=== PATIENT | male | born 1950 | race Caucasian/White ===

== ENCOUNTER 2019-08-01 05:32 | Inpatient (IN) ==
--- NOTE | 2019-07-14 08:28 | Anesthesiology Consultation ---
Date of Service July 14, 2019 Assessment & Plan (1) Encounter for pre-operative examination: Cardiology clearance 07/08/2019: "Patient has multiple risk factors however no history of CAD. He has mild aortic stenosis which would not affect perioperative course. Waiting for nuclear stress test before clearance made. Testing Thursday. He is on diltiazem and digoxin for previous atrial flutter/aberrancy. He has been stable without recurrence. EKG showing left bundle branch block, and previous EKG from 2009 does not. I feel as long as his nuclear stress test is okay, he can be cleared for surgery." Stress test showed EF 28%, was 50 to 55% on echocardiogram. Cardio repeated echo on 07/20/2019 which showed EF 45 to 50% EF. Cardiology 07/22 = "Patient is cleared for upcoming surgery from a cardiac standpoint." Chart Review Chart Review: Acceptable Risk for Surgery and Patient seen in Pre Admission Testing Teaching & Discussion Instructed NPO after midnight before surgery, except medications with 15 cc of water. Medication instructions provided according to the PAT guidelines. History Surgery Operation Date: 08/01/19 07:45 Proposed Procedures p L3-L5 Decompression and Fusion with Spinal Cord Monitoring - Richie Ralph, Height/Weight Height: 6 ft 2 in Weight: 108 kg Allergies Allergy/AdvReac Type Severity Reaction Status Date / Time CHOLESTEROL MEDICINE Allergy Unknown "CHOLESTEROL Uncoded 07/07/19 08:24 MEDICINE" - "CAN'T WALK" Medications Home Medications Medication Instructions Recorded Confirmed Last Taken aspirin [Aspir-81] 81 mg PO QAM 07/07/19 07/13/19 Unknown ascorbic acid (vitamin C) [Vitamin 500 mg PO DAILY 07/13/19 07/13/19 Unknown C] cholecalciferol (vitamin D3) 1,000 unit PO BID 07/13/19 07/13/19 Unknown [Vitamin D3] cinnamon bark [Cinnamon] 1,000 mg PO BID 07/13/19 07/13/19 Unknown cyanocobalamin (vitamin B-12) 500 mcg PO BID 07/13/19 07/13/19 Unknown [Vitamin B-12] digoxin 250 mcg PO QPM 07/13/19 07/13/19 Unknown diltiazem HCl 240 mg PO BID 07/13/19 07/13/19 Unknown duloxetine 30 mg PO HS 07/13/19 07/13/19 Unknown glipizide 2.5 mg PO QAM 07/13/19 07/13/19 Unknown losartan 100 mg PO QAM 07/13/19 07/13/19 Unknown metformin 1,000 mg PO BID 07/13/19 07/13/19 Unknown omega 6-oka-yek-fish oil [Fish Oil] 1 cap PO BID 07/13/19 07/13/19 Unknown vitamin E 400 unit PO QAM 07/13/19 07/13/19 Unknown Past Medical History Medical History (Updated 07/25/19 @ 09:29 by Mariusz Aquino) Back problem Diabetes History of colon polyps adenocarcinoma? Polyps cancerous per cardio office visit [facility] History of stroke TIA 2016. History of tachycardia Very rare episodes, has been over a decade since he had an episode Hypertension LBBB (left bundle branch block) Mild aortic stenosis by prior echocardiogram Echo 05/2019. Exercise / Class Metabolic Activity III < 4 Walking/Shop/Light housework (Difficult mobility 2/2 back pain/leg weakness, but denies SOB or CP with 1 FOS) Past Surgical History Surgical History (Updated 07/07/19 @ 08:33 by Willam Negrete RN) History of appendectomy WITH HERNIA REPAIR History of colonoscopy History of hand surgery R X2 History of knee surgery MULTIPLE R Past Anesthesia History No Hx of Anesthesia Complications and No Family Hx of Anesthesia Complications History of PONV No Hx of PONV and No Hx of Motion Sickness Social History Smoking Status: Former smoker tobacco type: cigarettes Do You Dip or Chew Tobacco: Yes (1 CAN PER DAY/ADVISED NPO) Smoking End Date: 20 YR AGO Hx Alcohol Use: Yes (seasonally--none in winter, several per day in summer) Hx Substance Use: No substance use type: does not use Review of Systems Pt denies any recent chest pain, shortness of breath, palpitations, cough, fever or URI. Physical Exam Vital Signs BP: 154/84 (pt is in significant pain) P: 67bpm SPO2: 95% RA T: 97.6 F R: 16 ENMT Mouth: + dentition abnormality (missing 1/3 of teeth); no dental restorations, no chipped teeth and no loose teeth Thyromental Distance: < 3.5 Finger Breadths (3) Mallampati Class: III Neck + facial hair (thick bushy mustache, pt advised to trim prior to surgery); neck extension not limited Respiratory normal respiratory effort Auscultation: lungs clear to auscultation bilaterally Cardiovascular Rate/Rhythm: regular rate and regular rhythm Heart Sounds: no murmur Extremities: no edema Testing Laboratory Results 07/14/19 08:40 07/14/19 08:40 PT 10.2 Seconds (9.0-12.0) 07/14/19 08:40 INR 1.0 (0.9-1.1) 07/14/19 08:40 APTT 27.1 Seconds (21.0-31.0) 07/14/19 08:40 Hemoglobin A1c 6.6 % (4.5-5.6) H 07/14/19 08:40 Urine Color Yellow 07/14/19 08:40 Urine Appearance Clear (Clear) 07/14/19 08:40 Urine pH 7.0 (4.5-7.5) 07/14/19 08:40 Ur Specific [place] 1.019 (1.000-1.030) 07/14/19 08:40 Urine Protein 2+ (Negative) H 07/14/19 08:40 Urine Glucose (UA) Negative (Negative) 07/14/19 08:40 Urine Ketones Negative (Negative) 07/14/19 08:40 Urine Nitrite Negative (Negative) 07/14/19 08:40 Ur Leukocyte Esterase Negative (Negative) 07/14/19 08:40 Urine WBC (Auto) 1-5 /hpf (0-5) 07/14/19 08:40 Urine RBC (Auto) 0-4 /hpf (0-4) 07/14/19 08:40 U Hyaline Cast (Auto) 0 /lpf (0-5) 07/14/19 08:40 U Epithel Cells (Auto) 5-10 /lpf (0-5) H 07/14/19 08:40 Urine Bacteria (Auto) Negative (Negative) 07/14/19 08:40 Blood Type O Positive 07/14/19 08:40 Antibody Screen NEGATIVE 07/14/19 08:40 Electrocardiogram Date: 06/23/19 Findings: + NSR @ (63bpm) LBBB. Chest X-Ray Date: 07/14/19 Findings: + NAD Echocardiogram Date: 06/23/19 EF: 50-55% Left ventricle cavity size is normal. Borderline concentric LVH. Global systolic function was normal. Left atrial size is normal. Trivial mitral regurgitation present. There is restricted aortic leaflet opening consistent with mild aortic stenosis. LINNEA 1.8/1.9cm2. Mean gradient 10.19. There is trivial tricuspid regurgitation present. Repeat TTE (done due to large discrepency in EF between echo and stress test) LV cavity size normal, wall thickness normal. OVerall LV systolic function is low-normal with an estimated EF of 45-50%. Stress Test Date: 07/11/19 Type: nuclear Resting EF: 28% This is an abnormal regadenason SPECT myocardial perfusion study due to the prescence of severe global HK. There is no significant ischemia or infarction, however. The LV is moderately dilated in size. The LV EF is 28%. Prognostically, this is a high risk study.
--- NOTE | 2019-07-14 08:32 | PAT Medication Instructions ---
Medication Instructions Date of Service July 14, 2019 Home Medications aspirin [Aspir-81] 81 mg PO QAM ascorbic acid (vitamin C) [Vitamin C] 500 mg PO DAILY cholecalciferol (vitamin D3) [Vitamin D3] 1,000 unit PO BID cinnamon bark [Cinnamon] 1,000 mg PO BID cyanocobalamin (vitamin B-12) [Vitamin B-12] 500 mcg PO BID digoxin 250 mcg PO QPM diltiazem HCl 240 mg PO BID duloxetine 30 mg PO HS glipizide 2.5 mg PO QAM losartan 100 mg PO QAM metformin 1,000 mg PO BID omega 2-tjk-fvz-fish oil [Fish Oil] 1 cap PO BID vitamin E 400 unit PO QAM STOP taking 2 weeks before surgery cinnamon bark [Cinnamon] 1,000 mg PO BID omega 4-igv-daw-fish oil [Fish Oil] 1 cap PO BID vitamin E 400 unit PO QAM DO NOT take the morning of surgery ascorbic acid (vitamin C) [Vitamin C] 500 mg PO DAILY cholecalciferol (vitamin D3) [Vitamin D3] 1,000 unit PO BID cyanocobalamin (vitamin B-12) [Vitamin B-12] 500 mcg PO BID glipizide 2.5 mg PO QAM losartan 100 mg PO QAM metformin 1,000 mg PO BID Take morning of surgery With a small sip of water, OTHERWISE NOTHING TO EAT OR DRINK AFTER MIDNIGHT: aspirin [Aspir-81] 81 mg PO QAM diltiazem HCl 240 mg PO BID Take evening before surgery cholecalciferol (vitamin D3) [Vitamin D3] 1,000 unit PO BID cinnamon bark [Cinnamon] 1,000 mg PO BID cyanocobalamin (vitamin B-12) [Vitamin B-12] 500 mcg PO BID digoxin 250 mcg PO QPM diltiazem HCl 240 mg PO BID duloxetine 30 mg PO HS metformin 1,000 mg PO BID Other Notes If you have any questions please call us at [phone] or [phone] or [phone] or [phone]
--- NOTE | 2019-07-14 09:15 | XRay Report ---
XR chest Pre-admission PA/Lat CLINICAL HISTORY: Preoperative chest COMPARISON STUDY: No previous studies for comparison. FINDINGS: The cardiac and mediastinal contours are normal. There is no evidence of focal pulmonary co nsolidation. There is no evidence of failure. No pleural effusions are visualized.[ IMPRESSION: No active disease in the chest. ACT 112: Negative or not required by law. Electronically signed by: Geo Birmingham M.D. 07/14/2019 9:14 AM
[2019-07-14 10:17] LABS: Basophils # (auto) 0.01 K/uL (0-0.2); Basophils % (auto) 0.2 %; Eosinophils # (auto) 0.17 K/uL (0-0.5); Eosinophils % (auto) 2.8 %; Hematocrit (blood only) 40.9 % (42-52); Hemoglobin 13.7 g/dL (14.0-18.0); Immature Granulocytes # (auto) 0.02 K/uL (0.00-0.02); Immature Granulocytes % (auto) 0.3 %; Lymphocytes # (auto) 1.34 K/uL (1.2-3.4); Lymphocytes % (auto) 21.9 %; Mean Corpuscular Hgb Conc 33.5 g/dL (32-36); Mean Corpuscular Volume 89.7 fL (80-100); Mean Platelet Volume 10.5 fL (7.4-10.4); Monocytes # (auto) 0.65 K/uL (0.11-0.59); Monocytes % (auto) 10.6 %; Neutrophils # (auto) 3.94 K/uL (1.4-6.5); Neutrophils % (auto) 64.2 %; Platelet Count 257 K/uL (130-400); RDW Coefficient of Variation 12.8 % (11.5-14.5); RDW Standard Deviation 41.4 fL (36.4-46.3); Red Blood Count 4.56 M/uL (4.7-6.1); White Blood Count 6.13 K/uL (4.8-10.8)
[2019-07-14 10:23] LABS: Appearance Urine Clear (Clear); Bacteria Urine Automated Negative (Negative); Bilirubin Urine Negative (Negative); Blood Urine Negative (Negative); Cast Urine Automated 0 /lpf (0-5); Color Urine Yellow; Glucose Urine UA Negative (Negative); Ketones Urine Negative (Negative); Leukocyte Esterase Urine Negative (Negative); Nitrite Urine Negative (Negative); Protein Urine 2+ (Negative); RBC Urine Automated 0-4 /hpf (0-4); Specific Gravity Urine 1.019 (1.000-1.030); Urobilinogen Urine Negative (Negative)
[2019-07-14 10:26] LABS: BUN Creatinine Ratio 14.8 (10-20); Calcium 9.1 mg/dl (8.5-10.1); Creatinine Clr Calc Pharmacy 101.1 ml/min; Est GFR (African American) 100.4; Est GFR (Non-African American) 86.6; Potassium 3.5 mmol/L (3.5-5.1)
[2019-07-14 10:36] LABS: Partial Thromboplastin Time 27.1 Seconds (21.0-31.0); Prothrombin Time 10.2 Seconds (9.0-12.0)
[2019-07-14 11:04] LABS: Estimated Average Glucose 143 mg/dl; Hemoglobin A1C 6.6 % (4.5-5.6)
[2019-08-01] MEDS ORDERED: CEFAZOLIN 2000MG 2,000 MG/15 ML SYR IV SCH ×2 (06:00→11:04)
[2019-08-01] MEDS ORDERED: GABAPENTIN 300 MG CAP PO SCH (06:00)
[2019-08-01] MEDS ORDERED: ACETAMINOPHEN 500 MG TAB PO SCH (06:00)
[2019-08-01] MEDS ORDERED: CeleBREX 200 MG CAP PO SCH (06:00)
[2019-08-01] MEDS ORDERED: LR 15ML/HR IV SCH (06:00)
[2019-08-01] MEDS ORDERED: fentaNYL citrate 100 MCG/2 ML VIAL ONE (06:29)
[2019-08-01] MEDS ORDERED: LIDOCAINE HCL 2% 2 ML VIAL/AMP(20MG/ML) INFIL ONE (06:29)
[2019-08-01] MEDS ORDERED: PROPOFOL IV EMULSION 10 MG/ML 20 ML VIAL IV ONE ×2 (06:29→08:12)
[2019-08-01] MEDS ORDERED: ROCURONIUM BROMIDE 10 MG/ML 5 ML VIAL ONE ×2 (06:29→08:17)
[2019-08-01] MEDS ORDERED: GLYCOPYRROLATE 0.2 MG/ML VIAL ONE (06:29)
[2019-08-01] MEDS ORDERED: DEXAMETHASONE SOD INJ 4 MG/ML VIAL ONE (06:29)
[2019-08-01] MEDS ORDERED: MIDAZOLAM HCL 1 MG/ML 2ML VIAL ONE (06:29)
[2019-08-01] MEDS ORDERED: NEOSTIGMINE METHYLSULFATE 1 MG/ML 10ML VIAL ONE (06:29)
[2019-08-01] MEDS ORDERED: ONDANSETRON INJ 2 MG/ML 2 ML VIAL ONE (06:29)
[2019-08-01] MEDS ORDERED: BUPIVACAINE/EPINEPHRINE 0.25% 1:200,000 30 ML VIAL ONE (07:08)
[2019-08-01] MEDS ORDERED: BACITRACIN INJ 50,000 UNIT VIAL ONE (07:08)
[2019-08-01] MEDS ORDERED: ATROPINE SULFATE 0.1 MG/ML 10ML SYR IV PRN (07:11)
[2019-08-01] MEDS ORDERED: HYDROmorphone INJ 2 MG/ML SYR/VIAL IV PRN (07:11)
[2019-08-01] MEDS ORDERED: METOCLOPRAMIDE HCL INJ 5 MG/ML 2 ML VIAL IV PRN ×2 (07:11→11:04)
[2019-08-01] MEDS ORDERED: PROMETHAZINE HCL 12.5 MG in SODIUM CHLORIDE 0.9% 50 ML IV PRN ×2 (07:11→11:04)
[2019-08-01] MEDS ORDERED: ONDANSETRON INJ 2 MG/ML 2 ML VIAL IV PRN ×2 (07:11→11:04)
[2019-08-01] MEDS ORDERED: fentaNYL citrate 100 MCG/2 ML VIAL IV PRN (07:11)
[2019-08-01] MEDS ORDERED: ePHEDrine sulfate 50 MG/ML AMP IV PRN (07:11)
--- NOTE | 2019-08-01 07:31 | History & Physical Bridge Note ---
Date of Service August 01, 2019 History & Physical Bridge Note I have examined the patient, reviewed the History & Physical and in the interval since the performance of the History & Physical I have noted the following changes of clinical significance: no changes noted
--- NOTE | 2019-08-01 07:32 | History & Physical Report ---
Date of Service August 01, 2019 Assessment & Plan (1) Neurogenic claudication due to lumbar spinal stenosis: L3-L5 decompression fusion Present on Admission?: Yes History of Present Illness Chief Complaint: Back and leg pain Primary Care Provider: Phoebe Mondragon This is a 68-year-old male who presents with chronic persistent back and leg pain. Failing a course of nonoperative care is here for surgical intervention. Allergies Allergy/AdvReac Type Severity Reaction Status Date / Time CHOLESTEROL MEDICINE Allergy Unknown "CHOLESTEROL Uncoded 08/01/19 06:08 MEDICINE" - "CAN'T WALK" Home Medications Home Medications Medication Instructions Recorded Confirmed Type aspirin [Aspir-81] 81 mg PO QAM 07/07/19 08/01/19 History ascorbic acid (vitamin C) [Vitamin 500 mg PO DAILY 07/13/19 08/01/19 History C] cholecalciferol (vitamin D3) 1,000 unit PO BID 07/13/19 08/01/19 History [Vitamin D3] cinnamon bark [Cinnamon] 1,000 mg PO BID 07/13/19 08/01/19 History cyanocobalamin (vitamin B-12) 500 mcg PO BID 07/13/19 08/01/19 History [Vitamin B-12] digoxin 250 mcg PO QPM 07/13/19 08/01/19 History diltiazem HCl [Cardizem CD] 240 mg PO BID 07/13/19 08/01/19 History glipizide 2.5 mg PO QAM 07/13/19 08/01/19 History losartan 100 mg PO QAM 07/13/19 08/01/19 History metformin 1,000 mg PO BID 07/13/19 08/01/19 History omega 4-pxg-mcy-fish oil [Fish Oil] 1 cap PO BID 07/13/19 08/01/19 History vitamin E 400 unit PO QAM 07/13/19 08/01/19 History baclofen 10 mg PO BID 07/28/19 08/01/19 History Past Med/Surg History Medical History (Updated 08/01/19 @ 07:32 by Richie Ralph DO) Back problem Diabetes History of colon polyps adenocarcinoma? Polyps cancerous per cardio office visit [facility] History of stroke TIA 2016. History of tachycardia Very rare episodes, has been over a decade since he had an episode Hypertension LBBB (left bundle branch block) Mild aortic stenosis by prior echocardiogram Echo 05/2019. Surgical History (Updated 07/07/19 @ 08:33 by Willam Negrete RN) History of appendectomy WITH HERNIA REPAIR History of colonoscopy History of hand surgery R X2 History of knee surgery MULTIPLE R Social History Preferred Language: Bulgarian Communication Ability: Effective Circular Shear Operator Required: No Beliefs That Will Affect Care: None Current Living Situation: Spouse Other Information That Helps Us Care for You: No Feels Safe at Home: Yes Smoking Status: Former smoker Tobacco Type: cigarettes ; Do You Dip or Chew Tobacco: Yes (1 CAN PER DAY/ADVISED NPO) ; Smoking End Date: 20 YR AGO ; Hx Alcohol Use: Yes (seasonally--none in winter, several per day in summer) Hx Substance Use: No Physical Exam Physical Exam: Patient is alert and oriented neurologically intact. Results & Data Vital Signs (Past 12 Hours) Vital Signs Temp Pulse Resp BP Pulse Ox 08/01/19 06:14 36.8 C 58 L 18 161/84 H 94
[2019-08-01] MEDS ORDERED: HYDROmorphone INJ 2 MG/ML SYR/VIAL ONE (08:11)
[2019-08-01] MEDS ORDERED: ePHEDrine sulfate 50 MG/ML AMP ONE (08:29)
[2019-08-01] MEDS ORDERED: FLOSEAL HEMOSTATIC MATRIX 10ML TOP ONE (09:36)
--- NOTE | 2019-08-01 09:36 | Operative Report ---
Post Operative Report Pre & Post Diagnosis Operation Date: 08/01/19 07:45 Pre-Op Diagnosis: Lumbar spinal stenosis with neurogenic claudication Post-Op Diagnosis: Same I identified the patient and participated in the time-out.: Yes Procedure Operation Date: 08/01/19 07:45 Actual Procedures #1 lumbar decompression with bilateral medial facetectomies and foraminotomies L3-4 L4-5. #2 posterior spinal fusion L4-5. #3 placement posterior instrumentation L4-5. #4 interbody fusion L4-5 per #5 placement of titanium 13 x 26 mm cage L4-5 per #6 placement locally harvested morselized autograft in the posterior lateral gutters. #7 placement infuse collagen sponge, master graft in the posterior gutters and ostial amp and interbody space. Surgeon Richie Ralph DO Linen Attendant Maria Alejandra Li Estimated Blood Loss 250 Findings Consistent with Post-Op Diagnosis Specimens None Indications This is a 68-year-old male who presents above-mentioned diagnosis after failing extensive course of nonoperative care is here for surgical intervention. Description of Procedure Patient was met with identified informed consent obtained. Patient was then taken to the operative suite underwent intubation placed in a prone position the Ortiz table on top of the Rohan frame. All bony prominences well-padded eyes inspected to ensure no external pressure placed upon them. This point the lumbar spine was prepped and draped in normal sterile fashion. Sharp dissection with the assistance of Bovie cautery was performed down to and exposing the lamina and transverse processes of L4 and L5 bilaterally. From a caudal cephalad fashion complete laminectomy of L4 partial laminectomy of L3 was performed including bilateral medial facetectomies and foraminotomies addressing all stenosis. Pedicle screws were then placed in L4 and L5 bilaterally with assistance of fluoroscopy the proper sized marlin placed. By way of a transforaminal approach on the left complete discectomy was performed endplates curetted to subcortical bleeding bone and a 13 x 26 mm titanium cage filled with osteo-bone graft tapped in position. The rods were then compressed locked into final position bilaterally. The transverse processes of L4 and L5 bur to subcortical bleeding bone. Infuse collagen sponge master graft local autograft placed in the posterior lateral gutters. 15 round MILTON drain inserted. The incision was then closed with 1 Vicryl in the fascia 2-0 Vicryl subcutaneously and 4 Monocryl for final skin closure. Steri-Strips dressings placed. Patient will continue to PACU stable condition. Please note spinal cord monitoring was utilized that the procedure no changes noted. Lastly Maria Alejandra Li was present at the entire procedure involved the patient positioning complex portions of the surgery and final skin closure. I attest to the content of the Intraoperative Record and any orders documented therein. Any exceptions are noted below.
--- NOTE | 2019-08-01 10:15 | Fluoroscopy Report ---
FL lumbar spine 2-3V CLINICAL HISTORY: DECOMPRESSION/FUSION COMPARISON STUDY: None. FLUOROSCOPY TIME: 14.7 seconds. FLUOROSCOPIC IMAGES: 2 FINDINGS: This images demonstrate an L4-L5 discectomy with interbody spacer placement. There is a pos terior decompression with bilateral pedicle screws at the L4 and L5 levels with interconnecting rods. Hardware is intact. IMPRESSION: Fluoroscopic images demonstrating an L4-L5 discectomy, posterior decompression bilateral pedicle screw fusion. ACT 112: Negative or not required by law. Electronically signed by: Senthil Wright M.D. 08/01/2019 10:14 AM
--- NOTE | 2019-08-01 10:39 | Anesthesiology Progress Note ---
Date of Service August 01, 2019 Anesthesia Post Procedure Vital Signs Vital Signs: Temp Pulse Pulse Resp BP Pulse Ox 08/01/19 10:25 58 L 16 121/64 97 08/01/19 10:15 62 16 117/89 96 08/01/19 10:05 69 16 132/59 L 99 08/01/19 09:59 36.3 C L 72 16 151/68 H 98 08/01/19 06:14 36.8 C 58 L 18 161/84 H 94 Transfer of Care Handoff Completed per policy Notes Mental Status: alert / awake / arousable and participated in evaluation Patient Amnestic to Procedure: Yes Nausea / Vomiting: adequately controlled Pain: adequately controlled Airway Patency, RR, SpO2: stable & adequate BP & HR: stable & adequate Hydration State: stable & adequate Anesthetic Complications: no major complications apparent
[2019-08-01] MEDS ORDERED: SOD PHOSPHATE/SOD BIPHOSPHATE ENEMA 132 ML BTL PR PRN (11:04)
[2019-08-01] MEDS ORDERED: ACETAMINOPHEN 500 MG TAB PO PRN (11:04)
[2019-08-01] MEDS ORDERED: MAGNESIUM HYDROXIDE SUSP 30 ML UDC PO PRN (11:04)
[2019-08-01] MEDS ORDERED: DO NOT ADMINISTER PNEUMOCOCCAL VACCINE PRN (11:04)
[2019-08-01] MEDS ORDERED: DO NOT ADMINISTER FLU VACCINE PRN (11:04)
[2019-08-01] MEDS ORDERED: NALOXONE HCL 0.4 MG/1 ML VIAL/CARP IV PRN (11:04)
[2019-08-01] MEDS ORDERED: LORazepam 0.5 MG/1 ML VIAL IV PRN (11:04)
[2019-08-01] MEDS ORDERED: bisacodyL 10 MG SUPP PR PRN (11:04)
[2019-08-01] MEDS ORDERED: ACETAMINOPHEN 1,000 MG/100 ML VIAL IV PRN (11:04)
[2019-08-01] MEDS ORDERED: FAMOTIDINE 20 MG TAB PO PRN (11:04)
[2019-08-01] MEDS ORDERED: ONDANSETRON 4 MG OD TAB PO PRN (11:04)
[2019-08-01] MEDS ORDERED: LORazepam 0.5 MG TAB PO PRN (11:04)
[2019-08-01] MEDS ORDERED: HYDROmorphone INJ 0.5 MG/0.5 ML SYR IV PRN (11:04)
[2019-08-01] MEDS ORDERED: ALUMINUM/MAGNESIUM SUSP 30 ML UDC PO PRN (11:04)
[2019-08-01] MEDS ORDERED: DEXTROSE 50% 50 ML SYRINGE IV PRN (11:28)
[2019-08-01] MEDS ORDERED: GLUCOSE 10 TABS/TUBE PO PRN (11:28)
[2019-08-01] MEDS ORDERED: GLUCOSE 40% GEL 15 GM TUBE PO PRN (11:28)
[2019-08-01] MEDS ORDERED: GLUCAGON FOR INJ 1 MG VIAL SQ PRN (11:28)
[2019-08-01] MEDS ORDERED: CARBOHYDRATES FOR HYPOGLYCEMIA PO PRN (11:28)
[2019-08-01] MEDS: KETOROLAC TROMETHAMINE 15 MG/ML VIAL IV SCH ×3 (11:48→23:43)
[2019-08-01] MEDS: SODIUM CHLORIDE 0.9% 1000ML 1,000 ML IV SCH ×2 (11:48→20:12)
--- NOTE | 2019-08-01 12:10 | Consultation ---
Date of Consultation August 01, 2019 Assessment & Plan (1) Neurogenic claudication due to lumbar spinal stenosis: S/P Lumbar decompression and fusion L4-[address] Ralph POD #0 EBL 250ml; MILTON drain 30ml Wound/Pain management per ortho activity and therapy as directed by ortho encourage incentive spirometry monitor H&H, pre op 13.7 and 40.9 Remove Morales catheter at discretion of Ortho (2) Diabetes: A1c 6.6 Hold metformin and glipizide lantus/novolog per protocol (3) Hypertension: Blood pressure controlled on losartan and diltiazem Parameters placed on losartan Monitor (4) History of tachycardia: History of atrial tachycardia aberrancy in 2009 without recurrence Continue digoxin and Cardizem (5) History of stroke: No deficits Continue ASA Not on statin secondary to allergy (6) LBBB (left bundle branch block): new LBBB found on pre op eval underwent nuclear stress test negative for ischemia (7) DVT prophylaxis: Per primary Disposition: per Primary Follow up: PCP Phoebe Mondragon, PAC at [facility] upon discharge Pt was seen and examined in collaboration with Dr. Weeks please see addendum Thank you for this consultation. We will follow the patient with you during their hospital stay. You can reach a member of the [facility]01 via pager @ [phone]. Supervising Physician Co-Signing Physician Notes Care coordinated with Geena Stout PA-C. Agree with above note. Patient seen and examined. Please refer to her notes for full details. Vital signs reviewed. Physical exam: General exam:Alert and awake. Not in distress CVS: S1 and S2 heard, regular rate and rhythm, no murmurs. RS: Clear to auscultation, no wheezing or crackles. ABD: Soft, bowel sounds present, nontender, no distention. POLLUTION CONTROL CHEMIST: alert oriented x 3 moves extremities Musculoskeletal; S/p Back surgery EXT: No edema, no erythema. Labs: Reviewed. Assessment and plan: s/p Back surgery post op management as per ortho DM hold po meds ISS will Monitor Hx of tachycardia on digoxin and cardizem followup with cardiology will monitor Other diagnosis and plan of care as per Geena Stout PA-C. Darryn corona MD. History of Present Illness Requesting Physician: Dr. Ralph Reason for Consultation: Postop medical management Attending Physician: Richie Ralph, DO History of Present Illness This is a 68-year-old male who has a significant PMH of T2DM, HTN, HLD, LBBB, history of tachycardia (atrial flutter with aberrancy per records in 2009), mild aortic stenosis, history of CVA 4 years ago no resid ual deficits who presents to [facility] for elective lumbar procedure by Dr. Ralph. Patient has neurogenic claudication due to lumbar spinal stenosis and failed outpatient conservative treatment. He underwent L3- L5 decompression and L4-L5 fusion. He tolerated the procedure well. Uzma is at bedside. He offers no acute concerns. Denies any fever, chills, sweats, lightheadedness, dizziness, chest pain, shortness of breath, palpitations, postoperative nausea vomiting, abdominal pain. He currently has Morales catheter in place. Currently has good appetite requesting food. He has history of T2DM well-controlled with last A1c 6.6 on 07/14/2019. Currently on regimen of metformin and glipizide. He has prior history of tachycardia referred to as atrial flutter with aberrancy in 2009. He is maintained on diltiazem and digoxin. He has had no recurrence since 2010. Also on significance he does have a history of CVA 4 years ago that affected his right lip. There is no further deficits. During preop evaluation patient was found to have new LBBB. He was seen and evaluated with preoperative clearance by cardiology. He underwent nuclear stress test. This was negative for ischemia but did reveal severe global hypokinesis with EF 20% due to tachycardia. Resting echo revealed EF 55%, borderline LVH and mild which is stable. Allergies Allergy/AdvReac Type Severity Reaction Status Date / Time CHOLESTEROL MEDICINE Allergy Unknown "CHOLESTEROL Uncoded 08/01/19 06:08 MEDICINE" - "CAN'T WALK" Home Medications Home Medications Medication Instructions Recorded Confirmed Type aspirin [Aspir-81] 81 mg PO QAM 07/07/19 08/01/19 History ascorbic acid (vitamin C) [Vitamin 500 mg PO BID 07/13/19 08/01/19 History C] cholecalciferol (vitamin D3) 1,000 unit PO BID 07/13/19 08/01/19 History [Vitamin D3] cinnamon bark [Cinnamon] 1,000 mg PO BID 07/13/19 08/01/19 History cyanocobalamin (vitamin B-12) 500 mcg PO BID 07/13/19 08/01/19 History [Vitamin B-12] digoxin 250 mcg PO QPM 07/13/19 08/01/19 History diltiazem HCl [Cardizem CD] 240 mg PO BID 07/13/19 08/01/19 History glipizide 2.5 mg PO QAM 07/13/19 08/01/19 History losartan 100 mg PO QAM 07/13/19 08/01/19 History metformin 1,000 mg PO BID 07/13/19 08/01/19 History omega 9-wna-jfr-fish oil [Fish Oil] 1 cap PO BID 07/13/19 08/01/19 History vitamin E 400 unit PO QAM 07/13/19 08/01/19 History baclofen 10 mg PO BID 07/28/19 08/01/19 History diltiazem HCl 60 mg PO DAILY PRN 08/01/19 08/01/19 History oxycodone 5 mg PO Q6H PRN #30 tab 08/01/19 Rx tramadol 50 mg PO Q6H PRN #30 tab 08/01/19 Rx Patient History Surgical History History of appendectomy WITH HERNIA REPAIR History of colonoscopy History of hand surgery R X2 History of knee surgery MULTIPLE R Social History Preferred Language: [place] Islander Communication Ability: Effective Appraiser Auditor Required: No Beliefs That Will Affect Care: None Current Living Situation: Spouse Other Information That Helps Us Care for You: No Feels Safe at Home: Yes Smoking Status: Former smoker Tobacco Type: cigarettes ; Do You Dip or Chew Tobacco: Yes (1 CAN PER DAY/ADVISED NPO) ; Smoking End Date: 20 YR AGO ; Hx Alcohol Use: Yes (seasonally--none in winter, several per day in summer) Hx Substance Use: No Review of Systems Review of Systems: All systems reviewed & are unremarkable except as noted in HPI & below Physical Exam Physical Exam: Constitutional: WD/WN, vitals as above, NAD, lying in bed, pleasant, conversing easily Head: Normocephalic, Atraumatic Eyes: PERRL, conjunctivae normal, anicteric sclerae ENMT: external ear and nose normal, oropharynx normal Neck: trachea midline, no thyromegaly normal visual inspection Respiratory: normal respiratory effort, lungs clear to auscultation, no wheeze, rales, rhonchi. Normal insp/exp effort, no accessory muscle use Cardiovascular: RRR, mild 1/6 LAVERNE RUSB, no radiation, no edema Vessels: no JVD or carotid bruit Chest: normal inspection of chest Abdomen: normal bowel sounds, soft, nontender, no hepatosplenomegaly Musculoskeletal: no cyanosis or clubbing, extremities motor strength 5/5 , right upper extremity limb alert in place secondary to, " multiple hand surgeries." Skin: no rashes, warm and dry normal turgor Neurologic: PERRL, EOMI, accommodation nl, no face palsy, no dysarthria CN's II-XI intact bilaterally and moves all extremities Psychiatric: A+Ox3, euthymic affect Lymphatic: no cervical or axillary lymphadenopathy : Morales catheter in place draining clear yellow urine Results & Data Vital Signs (Past 12 Hours) Vital Signs Temp Pulse Pulse Pulse Resp BP Pulse Ox 08/01/19 11:45 36.2 C L 60 16 136/66 95 08/01/19 11:15 36.2 C L 60 16 139/71 95 08/01/19 10:45 36.3 C L 64 16 126/74 97 08/01/19 10:35 36.6 C 61 16 130/64 97 08/01/19 10:25 58 L 16 121/64 97 08/01/19 10:15 62 16 117/89 96 08/01/19 10:05 69 16 132/59 L 99 08/01/19 09:59 36.3 C L 72 16 151/68 H 98 08/01/19 06:14 36.8 C 58 L 18 161/84 H 94 Laboratory Results Preop Labwork H&H 13.7/40.9, wbc 6.13, plt 257 A1c 6.6 Na 142, K 3.5, Chl 106, CO2 32, Bun 13, Cr 0.89 Diagnostic Findings CXR: IMPRESSION: No active disease in the chest. Lumbar Spine Xray: IMPRESSION: Fluoroscopic images demonstrating an L4-L5 discectomy, posterior d ecompression bilateral pedicle screw fusion. Medications Administered Sodium Chloride (Nss 1000ml) 1,000 mls @ 150 mls/hr IV .Q6H40M [facility]ER Stop: 08/31/19 11:03 Last Admin: 08/01/19 11:48 Dose: 150 mls/hr Documented by: [id number] Ketorolac Tromethamine (Toradol) 15 mg IV Q6H [facility] Stop: 08/02/19 06:01 Last Admin: 08/01/19 11:48 Dose: 15 mg Documented by: [id number] Discontinued Medications Acetaminophen (Tylenol) 1,000 mg PO PREOP [facility]IECER Stop: 08/01/19 18:00 Last Admin: 08/01/19 06:49 Dose: 1,000 mg Documented by: [id number] Bacitracin (Bacitracin) Confirm Administered Dose 50,000 units .ROUTE .STK-MED ONE Stop: 08/01/19 07:09 Last Admin: 08/01/19 08:16 Dose: 50,000 units Documented by: [id number] Bupivacaine HCl/Epinephrine Bitart (Bupivacaine 0.25%-Epi [id number]) Confirm Administered Dose 30 ml .ROUTE .STK-MED ONE Stop: 08/01/19 07:09 Last Admin: 08/01/19 08:16 Dose: 20 ml Documented by: [id number] Celecoxib (Celebrex) 200 mg PO PREOP [facility]IECER Stop: 08/01/19 18:00 Last Admin: 08/01/19 06:50 Dose: 200 mg Documented by: [id number] Gabapentin (Neurontin) 300 mg PO PREOP [facility]ECER Stop: 08/01/19 18:00 Last Admin: 08/01/19 06:49 Dose: 300 mg Documented by: [id number] Lactated Ringer's (Lr) 1,000 mls @ 15 mls/hr IV .Q24H [facility] Stop: 08/02/19 05:59 Last Infusion: 08/01/19 07:43 Dose: 0 mls/hr Documented by: [id number] Admin: 08/01/19 06:49 Dose: 15 mls/hr Documented by: [id number] Cefazolin Sodium (Ancef 2000mg) 2,000 mg in 15 mls @ 3.75 mls/min IV PREOP ELIECER; Protocol Stop: 08/01/19 18:00 Last Admin: 08/01/19 07:43 Dose: 3.75 mls/min Documented by: [id number] ECG Rate (beats per minute): 63 Rhythm: normal sinus Findings: + LBBB
[2019-08-01] MEDS: INSULIN GLARGINE SOLOSTAR 100 UNITS/ML 3 ML PEN SC SCH ×2 (13:45→20:43)
[2019-08-01] MEDS: INSULIN ASPART 100 UNITS/ML 3 ML PEN SC SCH ×3 (13:46→20:44)
[2019-08-01] MEDS: TRAMADOL HCL 50 MG TABLET PO PRN (15:46)
[2019-08-01] MEDS: CEFAZOLIN 2000MG 2,000 MG/15 ML SYR IV SCH ×2 (15:51→23:43)
[2019-08-01] MEDS: OXYCODONE HCL IR 5 MG TAB (IMMEDIATE RELEASE) PO PRN ×2 (19:18→23:46)
[2019-08-01] MEDS: BACLOFEN 10 MG TAB PO SCH (20:34)
[2019-08-01] MEDS: DIGOXIN 0.25 MG TAB PO SCH (20:34)
[2019-08-01] MEDS: CHOLECALCIFEROL 1,000 UNITS 25 MCG TAB PO SCH (20:34)
[2019-08-01] MEDS: dilTIAZem HCL 240 MG CAPCR PO SCH (20:34)
[2019-08-01] MEDS: ASCORBIC ACID 500 MG TAB PO SCH (20:35)
[2019-08-01] MEDS: DOCUSATE SODIUM/SENNA 50/8.6MG TAB PO SCH (20:35)
[2019-08-01] MEDS: OMEGA-3 (PURIFIED FISH OIL) 1 GM CAP PO SCH (20:35)
[2019-08-01] MEDS: CYANOCOBALAMIN 500 MCG TABLET (VITAMIN B-12) PO SCH (20:35)
[2019-08-01] MEDS ORDERED: COUGH DROP (SUGAR FREE) LOZ 24 LOZ/1 BOX BUCCAL PRN (23:54)
[2019-08-02] MEDS: HYDROmorphone INJ 1 MG/ML SYRINGE IV PRN ×2 (03:05→16:26)
[2019-08-02] MEDS: SODIUM CHLORIDE 0.9% 1000ML 1,000 ML IV SCH (03:31)
[2019-08-02] MEDS: KETOROLAC TROMETHAMINE 15 MG/ML VIAL IV SCH (05:18)
[2019-08-02 05:24] LABS: Basophils # (auto) 0.01 K/uL (0-0.2); Basophils % (auto) 0.1 %; Eosinophils # (auto) 0.01 K/uL (0-0.5); Eosinophils % (auto) 0.1 %; Hematocrit (blood only) 32.8 % (42-52); Immature Granulocytes # (auto) 0.05 K/uL (0.00-0.02); Immature Granulocytes % (auto) 0.4 %; Lymphocytes # (auto) 1.12 K/uL (1.2-3.4); Lymphocytes % (auto) 9.1 %; Mean Corpuscular Hemoglobin 30.1 pg (25-34); Mean Corpuscular Hgb Conc 33.5 g/dL (32-36); Mean Corpuscular Volume 89.9 fL (80-100); Mean Platelet Volume 10.5 fL (7.4-10.4); Monocytes % (auto) 11.4 %; Neutrophils # (auto) 9.67 K/uL (1.4-6.5); Neutrophils % (auto) 78.9 %; Platelet Count 204 K/uL (130-400); RDW Coefficient of Variation 13.1 % (11.5-14.5); RDW Standard Deviation 43.5 fL (36.4-46.3); Red Blood Count 3.65 M/uL (4.7-6.1); White Blood Count 12.26 K/uL (4.8-10.8)
[2019-08-02 05:49] LABS: BUN Creatinine Ratio 18.4 (10-20); Calcium 8.3 mg/dl (8.5-10.1); Creatinine Clr Calc Pharmacy 88.6 ml/min; Est GFR (African American) 85.9; Est GFR (Non-African American) 74.1; Potassium 3.7 mmol/L (3.5-5.1)
[2019-08-02] MEDS: POLYETHYLENE (MIRALAX) 17 GM PACK PO SCH ×3 (05:58→18:05)
--- NOTE | 2019-08-02 08:12 | Anesthesiology Progress Note ---
Date of Service August 02, 2019 Anesthesia Post Procedure Vital Signs Vital Signs: Temp Pulse Pulse Pulse Pulse Pulse Resp 08/02/19 07:24 36.6 C 75 18 08/02/19 03:05 36.7 C 80 16 08/01/19 23:04 36.6 C 75 16 08/01/19 20:34 88 08/01/19 20:30 88 08/01/19 20:28 86 08/01/19 19:13 36.5 C 75 17 08/01/19 15:32 36.3 C L 73 18 08/01/19 13:49 36.3 C L 62 16 08/01/19 11:45 36.2 C L 60 16 08/01/19 11:15 36.2 C L 60 16 08/01/19 10:45 36.3 C L 64 16 08/01/19 10:35 36.6 C 61 16 08/01/19 10:25 58 L 16 08/01/19 10:15 62 16 08/01/19 10:05 69 16 08/01/19 09:59 36.3 C L 72 16 BP BP Pulse Ox 08/02/19 07:24 161/79 H 94 08/02/19 03:05 166/84 H 93 08/01/19 23:04 125/67 93 08/01/19 20:34 08/01/19 20:30 08/01/19 20:28 159/74 H 08/01/19 19:13 164/79 H 93 08/01/19 15:32 149/78 H 91 08/01/19 13:49 187/77 H 95 08/01/19 11:45 136/66 95 08/01/19 11:15 139/71 95 08/01/19 10:45 126/74 97 08/01/19 10:35 130/64 97 08/01/19 10:25 121/64 97 08/01/19 10:15 117/89 96 08/01/19 10:05 132/59 L 99 08/01/19 09:59 151/68 H 98 Pain Intensity Medial Back: Pain Intensity: 0 Notes Mental Status: alert / awake / arousable and participated in evaluation Patient Amnestic to Procedure: Yes Nausea / Vomiting: see Notes below Pain: adequately controlled Airway Patency, RR, SpO2: stable & adequate BP & HR: stable & adequate Hydration State: stable & adequate Anesthetic Complications: no major complications apparent and Pt Satisfied with anesthetic care
[2019-08-02] MEDS: glipiZIDE 5 MG TAB PO SCH ×2 (08:17→08:34)
[2019-08-02] MEDS: LOSARTAN POTASSIUM 50 MG TAB PO SCH (08:19)
[2019-08-02] MEDS: dilTIAZem HCL 240 MG CAPCR PO SCH ×2 (08:19→20:45)
[2019-08-02] MEDS: OMEGA-3 (PURIFIED FISH OIL) 1 GM CAP PO SCH ×2 (08:20→20:45)
[2019-08-02] MEDS: BACLOFEN 10 MG TAB PO SCH ×2 (08:20→20:45)
[2019-08-02] MEDS: ASPIRIN 81 MG ECTAB PO SCH (08:20)
[2019-08-02] MEDS: CYANOCOBALAMIN 500 MCG TABLET (VITAMIN B-12) PO SCH ×2 (08:20→20:45)
[2019-08-02] MEDS: CHOLECALCIFEROL 1,000 UNITS 25 MCG TAB PO SCH ×2 (08:21→20:45)
[2019-08-02] MEDS: INSULIN ASPART 100 UNITS/ML 3 ML PEN SC SCH ×4 (08:24→21:49)
[2019-08-02] MEDS: INSULIN GLARGINE SOLOSTAR 100 UNITS/ML 3 ML PEN SC SCH ×2 (08:25→21:48)
[2019-08-02] MEDS: ASCORBIC ACID 500 MG TAB PO SCH ×2 (08:31→20:45)
--- NOTE | 2019-08-02 08:46 | Hospitalist Progress Note ---
Date of Service August 02, 2019 Assessment & Plan (1) Neurogenic claudication due to lumbar spinal stenosis: S/P Lumbar decompression and fusion L4-[address] Ralph POD #1 EBL 250ml; PATRICIO drain 205ml Wound/Pain management per ortho activity and therapy as directed by ortho encourage incentive spirometry monitor H&H, pre op 13.7 and 40.9, today 11.0 and 32.8,- acute blood loss anemia secondary to surg. procedure / expected, poss. also dilutional from IVF Remove Morales catheter at discretion of Ortho (2) Diabetes: A1c 6.6 Hold metformin and glipizide lantus/novolog per protocol BSG 136 (3) Hypertension: Blood pressure elevated on losartan and diltiazem continue to Monitor, likely in setting of post op state (4) History of tachycardia: History of atrial tachycardia aberrancy in 2009 without recurrence Continue digoxin and Cardizem (5) History of stroke: No deficits Continue ASA Not on statin secondary to allergy (6) LBBB (left bundle branch block): new LBBB found on pre op eval underwent nuclear stress test negative for ischemia (7) DVT prophylaxis: Per primary Disposition: per Primary Follow up: PCP Phoebe Mondragon, PAC at [facility] upon discharge Pt was seen and examined in collaboration with Dr. Novoa please see addendum Thank you for this consultation. We will follow the patient with you during their hospital stay. You can reach a member of the [facility] Hospitalist Team 19/01 via pager @ . Supervising Physician Co-Signing Physician Notes Pt seen and examined by me in room E307, care coordinated with CAITLIN Stout. Pt is sitting up in bed in NAD. Pt has been ambulating and pain seems to be well controlled. Denies any fever, chills, chest pain, shortness of breath, abdominal pain, nausea or vomiting. He has a good appetite. Passing flatus but no BM yet. Labs significant for acute blood loss anemia secondary to surgical procedure, will need to monitor H&H. Pt denies any symptoms such feeling dizzy, lightheaded, short of breath, or weak. On physical exam, lungs are clear to auscultation, RRR w/ soft syst. murmur at USB, abdomen soft, nondistended, nontender, + bowel sounds. Moves extremities spontaneously and w/o difficulty. Thank you for this consultation, pls refer to note above regarding any chronic conditions. Beatris WE[place]BROOK Subjective Patient was seen and examined in room 307-1. Follow up lumbar decompression/fusion by Dr. Ralph POD #1. "This is the best I've felt in 40 years." Denies f/c/s, chest pain, sob, n/v/d, abdominal pain. "I'm passing gas like a moose." Appetite is good. Pain controlled. Offers no acute concerns or complaints. Discussed with RN at bedside and offers no acute concerns. Review of Systems Review of Systems: All systems reviewed & are unremarkable except as noted in HPI & below Physical Exam Physical Exam: Gen: WD/WN, M, sitting up in bed, NAD, A&O x3 HEENT: Normocephalic, atraumatic, conjunctivae moist, sclerae anicteric, mucous membranes moist. Lung: Clear to Auscultation bilaterally, no wheezes/rales/rhonchi Heart: Regular rate, regular rhythm, 1/6 LAVERNE soft best RUSB, no rubs, or gallops Abdomen: Soft, NT, ND +BS x 4 Extremities: No edema Skin: Warm, no rash, negative turgor. Lumbar dressing CDI, Patricio drain with serosanguineous drainage : Morales cath in place, draining yellow urine Results & Data ([facility]) Vital Signs (Past 12 Hours) Vital Signs Temp Pulse Resp BP Pulse Ox 08/02/19 07:24 36.6 C 75 18 161/79 H 94 08/02/19 03:05 36.7 C 80 16 166/84 H 93 08/01/19 23:04 36.6 C 75 16 125/67 93 Laboratory Results Short CBC 08/02/19 Range/Units 04:52 WBC 12.26 H (4.8-10.8) K/uL Hgb 11.0 L (14.0-18.0) g/dL Hct 32.8 L (42-52) % Plt Count 204 (130-400) K/uL BMP 08/02/19 04:52 Sodium 142 Potassium 3.7 Chloride 107 Carbon Dioxide 31 BUN 19 H Creatinine 1.02 Glucose 154 H Calcium 8.3 L Medications Administered Ascorbic Acid (Vitamin C) 500 mg PO BID [facility]ER Stop: 08/31/19 20:59 Last Admin: 08/02/19 08:31 Dose: 500 mg Documented by: [id number] Admin: 08/01/19 20:35 Dose: 500 mg Documented by: [id number] Aspirin (Ecotrin Ectab) 81 mg PO QAM [facility] Stop: 09/01/19 08:59 Last Admin: 08/02/19 08:20 Dose: 81 mg Documented by: [id number] Baclofen (Lioresal) 10 mg PO BID [facility]ER Stop: 08/31/19 20:59 Last Admin: 08/02/19 08:20 Dose: 10 mg Documented by: [id number] Admin: 08/01/19 20:34 Dose: 10 mg Documented by: [id number] Cyanocobalamin (Vitamin B-12) 500 mcg PO BID [facility] Stop: 08/31/19 20:59 Last Admin: 08/02/19 08:20 Dose: 500 mcg Documented by: [id number] Admin: 08/01/19 20:35 Dose: 500 mcg Documented by: [id number] Digoxin (Lanoxin) 0.25 mg PO QPM [facility] Stop: 08/31/19 20:59 Last Admin: 08/01/19 20:34 Dose: 0.25 mg Documented by: [id number] Diltiazem HCl (Cardizem Cd) 240 mg PO BID [facility] Stop: 08/31/19 20:59 Last Admin: 08/02/19 08:19 Dose: 240 mg Documented by: [id number] Admin: 08/01/19 20:34 Dose: 240 mg Documented by: [id number] Fish Oil ([place]-3 (Purified Fish Oil)) 1 gm PO BID [facility] Stop: 08/31/19 20:59 Last Admin: 08/02/19 08:20 Dose: 1 gm Documented by: [id number] Admin: 08/01/19 20:35 Dose: 1 gm Documented by: [id number] Glipizide (Glucotrol) 2.5 mg PO DAILY@0800 [facility] Stop: 09/01/19 07:59 Last Admin: 08/02/19 08:34 Dose: Not Given Documented by: [id number] Hydromorphone HCl (Dilaudid) 1 mg IV Q3H PRN PRN Reason: severe pain (scale 7-10) Stop: 08/15/19 11:03 Last Admin: 08/02/19 03:05 Dose: 1 mg Documented by: [id number] Insulin Aspart (Novolog Flexpen) 0 units SC ACHS [facility] Stop: 08/31/19 11:29 Last Admin: 08/02/19 08:24 Dose: 8 units Documented by: [id number] Cosigned by: [id number] Admin: 08/01/19 20:44 Dose: 4 units Documented by: [id number] Cosigned by: [id number] Admin: 08/01/19 18:09 Dose: 13 units Documented by: [id number] Cosigned by: [id number] Admin: 08/01/19 13:46 Dose: 9 units Documented by: [id number] Cosigned by: [id number] Insulin Glargine (Lantus Solostar Pen) 0 - 10 units SC BID [facility]; Protocol Stop: 08/31/19 11:29 Last Admin: 08/02/19 08:25 Dose: 5 units Documented by: [id number] Cosigned by: [id number] Admin: 08/01/19 20:43 Dose: 10 units Documented by: [id number] Cosigned by: [id number] Admin: 08/01/19 13:45 Dose: 5 units Documented by: [id number] Cosigned by: [id number] Losartan Potassium (Cozaar) 100 mg PO QAM [facility] Stop: 09/01/19 08:59 Last Admin: 08/02/19 08:19 Dose: 100 mg Documented by: [id number] Menthol (Nice) 1 arnie BUCCAL PRN PRN PRN Reason: Cough Stop: 08/31/19 23:53 Last Admin: 08/01/19 23:56 Dose: 1 arnie Documented by: [id number] Oxycodone HCl (Roxicodone Immediate Rel) 5 - 10 mg PO Q4H PRN PRN Reason: Moderate-Severe Pain Stop: 08/15/19 11:03 Last Admin: 08/01/19 23:46 Dose: 10 mg Documented by: [id number] Admin: 08/01/19 19:18 Dose: 10 mg Documented by: [id number] Polyethylene Glycol (Miralax Powder Packet) 17 gm PO Q6 [facility] Stop: 09/01/19 05:59 Last Admin: 08/02/19 05:58 Dose: Not Given Documented by: [id number] Senna/Docusate Sodium (Senokot S) 2 tab PO HS [facility] Stop: 08/31/19 20:59 Last Admin: 08/01/19 20:35 Dose: 2 tab Documented by: [id number] Tramadol HCl (Ultram) 50 - 100 mg PO Q4H PRN PRN Reason: Moderate-Severe Pain Stop: 08/31/19 11:03 Last Admin: 08/01/19 15:46 Dose: 100 mg Documented by: [id number] Vitamin D (Vitamin D3) 1,000 units PO BID [facility] Stop: 08/31/19 20:59 Last Admin: 08/02/19 08:21 Dose: 1,000 units Documented by: [id number] Admin: 08/01/19 20:34 Dose: 1,000 units Documented by: [id number] Discontinued Medications Acetaminophen (Tylenol) 1,000 mg PO PREOP [facility] Stop: 08/01/19 18:00 Last Admin: 08/01/19 06:49 Dose: 1,000 mg Documented by: [id number] Bacitracin (Bacitracin) Confirm Administered Dose 50,000 units .ROUTE .STK-MED ONE Stop: 08/01/19 07:09 Last Admin: 08/01/19 08:16 Dose: 50,000 units Documented by: [id number] Bupivacaine HCl/Epinephrine Bitart (Bupivacaine 0.25%-Epi [id number]) Confirm Administered Dose 30 ml .ROUTE .STK-MED ONE Stop: 08/01/19 07:09 Last Admin: 08/01/19 08:16 Dose: 20 ml Documented by: [id number] Celecoxib (Celebrex) 200 mg PO PREOP [facility] Stop: 08/01/19 18:00 Last Admin: 08/01/19 06:50 Dose: 200 mg Documented by: [id number] Gabapentin (Neurontin) 300 mg PO PREOP [facility] Stop: 08/01/19 18:00 Last Admin: 08/01/19 06:49 Dose: 300 mg Documented by: [id number] Lactated Ringer's (Lr) 1,000 mls @ 15 mls/hr IV .Q24H [facility] Stop: 08/02/19 05:59 Last Infusion: 08/01/19 07:43 Dose: 0 mls/hr Documented by: [id number] Admin: 08/01/19 06:49 Dose: 15 mls/hr Documented by: [id number] Cefazolin Sodium (Ancef 2000mg) 2,000 mg in 15 mls @ 3.75 mls/min IV PREOP [facility]IECER; Protocol Stop: 08/01/19 18:00 Last Admin: 08/01/19 07:43 Dose: 3.75 mls/min Documented by: [id number] Sodium Chloride (Nss 1000ml) 1,000 mls @ 150 mls/hr IV .Q6H40M [facility] Stop: 08/31/19 11:03 Last Admin: 08/02/19 03:31 Dose: Not Given Documented by: [id number] Infusion: 08/02/19 02:53 Dose: 0 mls/hr Documented by: [id number] Admin: 08/01/19 20:12 Dose: 150 mls/hr Documented by: [id number] Infusion: 08/01/19 18:28 Dose: 150 mls/hr Documented by: [id number] Infusion: 08/01/19 14:20 Dose: 150 mls/hr Documented by: [id number] Admin: 08/01/19 11:48 Dose: 150 mls/hr Documented by: [id number] Cefazolin Sodium (Ancef 2000mg) 2,000 mg in 15 mls @ 3.75 mls/min IV Q8H [facility]; Protocol Stop: 08/02/19 00:03 Last Admin: 08/01/19 23:43 Dose: 3.75 mls/min Documented by: [id number] Admin: 08/01/19 15:51 Dose: 3.75 mls/min Documented by: [id number] Ketorolac Tromethamine (Toradol) 15 mg IV Q6H [facility] Stop: 08/02/19 06:01 Last Admin: 08/02/19 05:18 Dose: 15 mg Documented by: [id number] Admin: 08/01/19 23:43 Dose: 15 mg Documented by: [id number] Admin: 08/01/19 18:04 Dose: 15 mg Documented by: [id number] Admin: 08/01/19 11:48 Dose: 15 mg Documented by: [id number]
[2019-08-02] MEDS ORDERED: ASCORBIC ACID 500 MG TAB PO SCH (09:00)
--- NOTE | 2019-08-02 09:40 | Orthopedic Progress Note ---
Date of Service August 02, 2019 Assessment & Plan (1) Neurogenic claudication due to lumbar spinal stenosis: This time we will continue physical therapy advance his bowel regiment hopefully discharge home in the next few days. Present on Admission?: Yes Subjective Back pain controlled leg symptoms improved. Physical Exam Physical Exam: Patient is good strength testing appears comfortable. Results & Data ([facility]) Vital Signs (Past 12 Hours) Vital Signs Temp Pulse Resp BP Pulse Ox 08/02/19 07:24 36.6 C 75 18 161/79 H 94 08/02/19 03:05 36.7 C 80 16 166/84 H 93 08/01/19 23:04 36.6 C 75 16 125/67 93
[2019-08-02] MEDS: DOCUSATE SODIUM/SENNA 50/8.6MG TAB PO SCH (20:45)
[2019-08-02] MEDS: DIGOXIN 0.25 MG TAB PO SCH (20:45)
[2019-08-02] MEDS: OXYCODONE HCL IR 5 MG TAB (IMMEDIATE RELEASE) PO PRN (20:46)
[2019-08-03] MEDS: POLYETHYLENE (MIRALAX) 17 GM PACK PO SCH ×4 (00:21→17:59)
--- NOTE | 2019-08-03 08:49 | Hospitalist Progress Note ---
Date of Service August 03, 2019 Assessment & Plan (1) Neurogenic claudication due to lumbar spinal stenosis: S/P Lumbar decompression and fusion L4-[address] Ralph POD #2 EBL 250ml; MILTON drain 240ml Wound/Pain management per ortho activity and therapy as directed by ortho encourage incentive spirometry monitor H&H, pre op 13.7 and 40.9, today 11.0 and 32.8, likely dilutional from IVF (2) Diabetes: A1c 6.6 Hold metformin and glipizide lantus/novolog per protocol BSG 127, well controlled okay to discharge home on oral hypoglycemics (3) Hypertension: Blood pressure has been labile on losartan and diltiazem currently 162/73 continue to Monitor, likely in setting of post op state and pain (4) History of tachycardia: History of atrial tachycardia aberrancy in 2009 without recurrence Continue digoxin and Cardizem (5) History of stroke: No deficits Continue ASA Not on statin secondary to allergy (6) LBBB (left bundle branch block): new LBBB found on pre op eval underwent nuclear stress test negative for ischemia (7) DVT prophylaxis: Per primary Disposition: per Primary Follow up: PCP Phoebe Mondragon, PAC at [facility] upon discharge Pt was seen and examined in collaboration with Dr. Pyle please see addendum Thank you for this consultation. We will follow the patient with you during their hospital stay. You can reach a member of the [facility] Hospitalist Team 19/01 via pager @ [phone]. Supervising Physician Co-Signing Physician Notes Physical Exam Gen-AAO x 3, NAD, Afebrile, Sore Back Head-NCAT, EOMI, PERRLA, Anicteric Sclera, No Posterior Pharyngeal Erythema Neck-Supple, No JVD, No Thyromegaly, No Masses, No LAD, No Bruits Lungs-Clear to Auscultation Bilaterally, No Rales, No Rhonchi, No Wheezing, No Crepitus Chest-No S4, +S1, +S2, No S3, No Murmurs, No Rubs, No Gallops, No Ectopy Abdomen-Soft, Bowel Sounds Present, Non Tender, Non Distended, No Hepatomegaly, No Splenomegaly, No Palpable Masses, No Rebound, No Rigidity, No Guarding Musculoskeletal-Full Range of Motion Bilaterally, No CVAT Extremities-No Cyanosis, No Clubbing, No Edema Nuero-Cranial Nerves II-XII grossly intact, Motor WNL, DTRs WNL, Strength WNL, Non Focal Psych-Normal Mood Subjective Patient seen and examined in room 307-1. Follow up Lumbar Decompression/fusion by Dr. Ralph POD #2. "I had a bad night last night with muscle spasms in my back. I couldn't get comfortable for 3 hours." That has since resolved and he offers no acute concer ns this morning. Denies f/c/s, chest pain, sob, n/v/d. Denies difficulty urinating, dysuria, increased freq/urg with urination. Appetite is good. +Flatus but no BM. Therapy has gone well per patient. Review of Systems Review of Systems: All systems reviewed & are unremarkable except as noted in HPI & below Physical Exam Physical Exam: Gen: WD/WN, M, lying in bed, NAD, A&O x3 HEENT: Normocephalic, atraumatic, conjunctivae moist, sclerae anicteric, mucous membranes moist. Lung: Clear to Auscultation bilaterally, no wheezes/rales/rhonchi Heart: Regular rate, regular rhythm, 1/6 LAVERNE best RUSB, no rubs, or gallops Abdomen: Soft, NT, ND +BS x 4 Extremities: No edema, lumbar dressing CDI MILTON drain intact Skin: Warm, no rash, negative turgor. Results & Data ([facility]) Vital Signs (Past 12 Hours) Vital Signs Temp Pulse Pulse Pulse Resp BP Pulse Ox 08/03/19 07:45 37.1 C 84 16 162/73 H 94 08/02/19 23:14 37.2 C 84 16 159/68 H 91 08/02/19 20:45 80 08/02/19 20:38 80 197/89 H
[2019-08-03] MEDS: LOSARTAN POTASSIUM 50 MG TAB PO SCH (09:01)
[2019-08-03] MEDS: OMEGA-3 (PURIFIED FISH OIL) 1 GM CAP PO SCH ×2 (09:01→20:36)
[2019-08-03] MEDS: dilTIAZem HCL 240 MG CAPCR PO SCH ×2 (09:01→20:37)
[2019-08-03] MEDS: BACLOFEN 10 MG TAB PO SCH ×2 (09:01→20:37)
[2019-08-03] MEDS: CHOLECALCIFEROL 1,000 UNITS 25 MCG TAB PO SCH ×2 (09:01→20:36)
[2019-08-03] MEDS: ASPIRIN 81 MG ECTAB PO SCH (09:01)
[2019-08-03] MEDS: INSULIN GLARGINE SOLOSTAR 100 UNITS/ML 3 ML PEN SC SCH ×2 (09:02→20:40)
[2019-08-03] MEDS: CYANOCOBALAMIN 500 MCG TABLET (VITAMIN B-12) PO SCH ×2 (09:02→20:36)
[2019-08-03] MEDS: ASCORBIC ACID 500 MG TAB PO SCH ×2 (09:02→20:36)
[2019-08-03] MEDS: INSULIN ASPART 100 UNITS/ML 3 ML PEN SC SCH ×4 (09:03→20:42)
[2019-08-03] MEDS: OXYCODONE HCL IR 5 MG TAB (IMMEDIATE RELEASE) PO PRN ×2 (10:16→15:06)
--- NOTE | 2019-08-03 11:11 | Orthopedic Progress Note ---
Date of Service August 03, 2019 Assessment & Plan (1) Neurogenic claudication due to lumbar spinal stenosis: I will give him a dose of Decadron today. Continue to encourage physical therapy. Discontinue Ativan. Hopefully discharge home in the next few days. Present on Admission?: Yes Subjective Patient complaining of considerable soreness and pain today. He said the was confused last evening. Physical Exam Physical Exam: On exam is in the chair at the bedside. Is good strength testing. Is alert and oriented. His is with him. Results & Data ([facility]) Vital Signs (Past 12 Hours) Vital Signs Temp Pulse Resp BP Pulse Ox 08/03/19 07:45 37.1 C 84 16 162/73 H 94 08/02/19 23:14 37.2 C 84 16 159/68 H 91
[2019-08-03] MEDS ORDERED: DEXAMETHASONE SOD PHOSPHATE 8 MG in SYRINGE 0 ML IV ONE (11:15)
[2019-08-03] MEDS: DIGOXIN 0.25 MG TAB PO SCH (20:37)
[2019-08-03] MEDS: DOCUSATE SODIUM/SENNA 50/8.6MG TAB PO SCH (20:37)
[2019-08-04] MEDS: OXYCODONE HCL IR 5 MG TAB (IMMEDIATE RELEASE) PO PRN ×4 (00:36→23:45)
[2019-08-04] MEDS: POLYETHYLENE (MIRALAX) 17 GM PACK PO SCH ×4 (00:37→18:39)
[2019-08-04] MEDS: dilTIAZem HCL 240 MG CAPCR PO SCH ×2 (08:37→20:27)
[2019-08-04] MEDS: ASPIRIN 81 MG ECTAB PO SCH (08:37)
[2019-08-04] MEDS: CYANOCOBALAMIN 500 MCG TABLET (VITAMIN B-12) PO SCH ×2 (08:37→20:27)
[2019-08-04] MEDS: CHOLECALCIFEROL 1,000 UNITS 25 MCG TAB PO SCH ×2 (08:37→20:27)
[2019-08-04] MEDS: OMEGA-3 (PURIFIED FISH OIL) 1 GM CAP PO SCH ×2 (08:37→20:27)
[2019-08-04] MEDS: ASCORBIC ACID 500 MG TAB PO SCH ×2 (08:37→20:27)
[2019-08-04] MEDS: LOSARTAN POTASSIUM 50 MG TAB PO SCH (08:37)
[2019-08-04] MEDS: BACLOFEN 10 MG TAB PO SCH ×2 (08:37→20:26)
[2019-08-04] MEDS: INSULIN GLARGINE SOLOSTAR 100 UNITS/ML 3 ML PEN SC SCH ×2 (08:40→21:04)
[2019-08-04] MEDS: INSULIN ASPART 100 UNITS/ML 3 ML PEN SC SCH ×4 (08:41→21:04)
--- NOTE | 2019-08-04 08:44 | Discharge Summary ---
Date of Service August 04, 2019 Admission HPI Per Admitting Provider This is a 68-year-old male who presents with chronic persistent back and leg pain. Failing a course of nonoperative care is here for surgical intervention. Principal Diagnosis Lumbar spinal stenosis with neurogenic claudication Discharge Data Allergies Allergy/AdvReac Type Severity Reaction Status Date / Time CHOLESTEROL MEDICINE Allergy Unknown "CHOLESTEROL Uncoded 08/01/19 06:08 MEDICINE" - "CAN'T WALK" Consultations 08/01/19 11:04 Consult Case Management - Discharge Planning Routine Consult Hospitalist Routine Procedures Performed Operation Date: 08/01/19 07:45 Actual Procedures p L4-L5 Decompression And Fusion, interbody cage L4-L5, use of osteamp, use of Infuse, Spinal Cord Monitoring(Not Applicable) - Richie Ralph DO Ordered Studies 08/01/19 07:45 FL fluoroscopy <1hr Routine FL lumbar spine 2-3V Routine Hospital Course (1) Neurogenic claudication due to lumbar spinal stenosis: Patient with lumbar decompression fusion tolerated so was taken to orthopedic or postoperative. Postop day 1 is up and ambulating progressed the postop day #2 still struggling with some back and leg pain progressing slowly with therapy. Improved on postop day #3 MILTON drain decreasing probably. Subsequently was removed. He was ready for discharge to rehab. Discharge orders instructions from the chart for further review. Total Time Total Time Spent Total Time Spent (In Minutes): 20 minutes Discharge Plan Discharge Items Patient Disposition: Transfer Inpatient Rehab Fac Reason For Visit: SPONDYLOSIS W/O MYELOPATHY OR RADICULOPATHY Discharge Diagnosis: Lumbar spinal stenosis with neurogenic claudication Activity: As commented below Non-emergency contact: Primary Care Provider Call non-emergency contact if: you have any medication questions Follow-up/Referrals: Phoebe Mondragon PA-C [Primary Care Provider] - Diet: Regular Addtl Attending Provider Instructions: ACTIVITY RECOMMENDATIONS: SELF CARE INSTRUCTIONS AFTER THORACIC/LUMBAR FUSIONS 1. You may walk to your tolerance. It is good exercise for your legs and back. Expect some back and intermittent leg aches and pains. 2. You may perform "counter-top" level activities (make a sandwich, christiano with a project, etc.). 3. No bending or lifting of more than 10 pounds or back twisting of any nature (roll like a log when turning in bed). 4. You may ride in a car for 20-30 minutes at a time. No driving until after your first visit with your doctor. 5. Frequent changes of position and restricting sitting to 30 minutes at a time will help limit the amount of back spasms and stiffness you may experience. 6. You may discontinue the use of ambulatory aids (cane, crutches, etc.) once your strength and confidence allow. 7. You may oxidized finish plater the shower and let water strike your incision when you arrive home at least once daily. Do not take a tub bath, sit in a hot tub or go into a swimming pool until after your first recheck in the office. SPECIAL CARE INSTRUCTIONS: VERY IMPORTANT TO READ AND REVIEW A. Your surgical incision has been closed with a cosmetic suture under the skin that will dissolve in about 6 weeks. In 14 days, you can use a pair of clean scissors and cut the suture that is left outside of the skin at the ends of your incision. 1. The small skin tapes can be removed 7 days after surgery if they have not fallen off by that point. 2. You may keep the wound open to air as much as possible to promote healing after post-op day number 5 unless told otherwise by your doctor. 3. If you think the wound looks like it is becoming infected (redness or worsening drainage) and/or you are experiencing fever, chill or worsening back pain and muscle spasms, contact the office so that we may evaluate you as soon as possible. B. Complications are uncommon, but please contact us if you have any signs or symptoms of: 1. wound infection (fever higher than 102.5 degrees F, redness, separation of wound, drainage, or increasing pain from the incision) 2. blood clots in legs (pain, swelling, redness and warmth in legs) 3. urinary tract infection (fever higher than 102.5 degrees F, burning upon urination or increased frequency of urination) 4. nerve problems (inability to walk on your toes or heels, numbness, loss of bowel or bladder control) 5. any other symptoms that concern you C. Please call the office at if you have any concerns or questions about your operation or recovery. D. No smoking! Smoking drastically decreases the chance of a solid fusion. E. Do not take any anti-inflammatory medications (Indocin, Advil, Motrin, Aspirin, Naprosyn, etc.) as these may inhibit the chance of a solid fusion. Tylenol is okay to take for pain. MANAGING PAIN AFTER SPINAL SURGERY 1. Narcotic medication is intended for short-term use and will be provided for surgical pain. Surgical pain usually lasts for a period of 4-6 weeks. Narcotic medication includes Percocet, Vicodin, Darvocet, Tylenol #3 or Lortab. 2. Longer-term pain is more appropriately treated with non-narcotic medication such as Tylenol ES. 3. Muscle spasm is not appropriately treated with narcotics. Muscle relaxers such as Soma, Flexeril or Skelaxin can be used along with Tylenol ES. 4. Remember that we all live with some "aches and pains". This is not unusual or uncommon after an injury or as we get older. a. Back pain is expected and may include muscle spasms for 4 to 6 weeks after surgery. The pain should gradually improve. If the pain worsens for no apparent reason, please contact the office. b. Intermittent leg pain may also be experienced and should not be concerned about unless it worsens for no apparent reason. If so, please contact the office. 5. We will provide appropriate medication within the normal guidelines of their prescribed use. We will also be very cautious and aware of potential abuse and extended duration of patients' medication needs. a. Pain medications are for your comfort and to assist with sleep and rest so that the tissue can heal. They are not provided in order to return to normal activity and should not be used through the day. To do so or worsening pain at night can result from ongoing tissue damage and development of tolerance to the prescribed medicine. 6. Please allow 2-3 days to process refills. Prescriptions will not be mailed but must be picked up at the office. FOLLOW UP VISIT: Keep your scheduled follow-up appointment. Any questions, please call the office at . Pending Studies at Discharge: No Stand-Alone Forms: [employer], Smoking Cessation Skilled Items Patient informed of condition?: Yes DNR: No Discharge Level of Care: Acute rehab Communicable Disease: No Discharge Prognosis: Improving Lines: None Urinary Catheter: No Medications and DC Order Prescriptions: New tramadol 50 mg tablet 50 mg PO Q6H PRN (Reason: pain, moderate) Qty: 30 RF: 0 oxycodone 5 mg tablet 5 mg PO Q6H PRN (Reason: pain, severe) Qty: 30 RF: 0 Continued aspirin [Aspir-81] 81 mg Tablet,Delayed Release (Dr/Ec) 81 mg PO QAM RF: 0 diltiazem HCl [Cardizem CD] 240 mg Capsule,Extended Release 24hr 240 mg PO BID RF: 0 digoxin 250 mcg (0.25 mg) Tablet 250 mcg PO QPM RF: 0 cyanocobalamin (vitamin B-12) [Vitamin B-12] 500 mcg Tablet 500 mcg PO BID RF: 0 ascorbic acid (vitamin C) [Vitamin C] 500 mg Tablet 500 mg PO BID RF: 0 metformin 1,000 mg Tablet 1,000 mg PO BID RF: 0 losartan 100 mg Tablet 100 mg PO QAM RF: 0 vitamin E 400 unit Capsule 400 unit PO QAM RF: 0 glipizide 5 mg Tablet 2.5 mg PO QAM RF: 0 cinnamon bark [Cinnamon] 500 mg Capsule 1,000 mg PO BID RF: 0 cholecalciferol (vitamin D3) [Vitamin D3] 25 mcg (1,000 unit) Tablet 1,000 unit PO BID RF: 0 omega 2-bua-oya-fish oil [Fish Oil] 1,000 mg (120 mg-180 mg) Capsule 1 cap PO BID RF: 0 baclofen 10 mg Tablet 10 mg PO BID RF: 0 diltiazem HCl 60 mg Tablet 60 mg PO DAILY PRN (Reason: Tachycardia) RF: 0 Discharge Orders: Discharge Order (Routine); Ordered 08/04/19 Ordered By: Richie Ralph Admission Data Admit Date/Time: 08/01/19 10:12 Attending Provider: Richie Ralph Admit Provider: Richie Ralph Primary Care Provider: Phoebe Mondragon Other Providers: Brian Novoa
--- NOTE | 2019-08-04 11:59 | Hospitalist Progress Note ---
Date of Service August 04, 2019 Assessment & Plan (1) Neurogenic claudication due to lumbar spinal stenosis: S/P Lumbar decompression and fusion L4-[address] Ralph POD #3 EBL 250ml Wound/Pain management per ortho activity and therapy as directed by ortho encourage incentive spirometry monitor H&H, pre op 13.7 and 40.9, today 11.0 and 32.8,- acute blood loss anemia secondary to surg. procedure / expected, poss. also dilutional from IVF (2) Diabetes: A1c 6.6 Hold metformin and glipizide lantus/novolog per protocol BSG 181, elevated 2/2 to additional decadron dose okay to discharge home on oral hypoglycemics (3) Hypertension: Blood pressure has been labile on losartan and diltiazem currently 147/85 continue to Monitor, likely in setting of post op state and pain (4) History of tachycardia: History of atrial tachycardia aberrancy in 2009 without recurrence Continue digoxin and Cardizem (5) History of stroke: No deficits Continue ASA Not on statin secondary to allergy (6) LBBB (left bundle branch block): new LBBB found on pre op eval underwent nuclear stress test negative for ischemia (7) DVT prophylaxis: Per primary Disposition: per Primary Follow up: PCP Phoebe Mondragon, PAC at [facility] upon discharge Pt was seen and examined in collaboration with Dr. Pyle please see addendum Thank you for this consultation. We will follow the patient with you during their hospital stay. You can reach a [facility] via pager @ [phone]. Supervising Physician Co-Signing Physician Notes Physical Exam Gen-AAO x 3, NAD, Afebrile, Sore Back Head-NCAT, EOMI, PERRLA, Anicteric Sclera, No Posterior Pharyngeal Erythema Neck-Supple, No JVD, No Thyromegaly, No Masses, No LAD, No Bruits Lungs-Clear to Auscultation Bilaterally, No Rales, No Rhonchi, No Wheezing, No Crepitus Chest-No S4, +S1, +S2, No S3, No Murmurs, No Rubs, No Gallops, No Ectopy Abdomen-Soft, Bowel Sounds Present, Non Tender, Non Distended, No Hepatomegaly, No Splenomegaly, No Palpable Masses, No Rebound, No Rigidity, No Guarding Musculoskeletal-Full Range of Motion Bilaterally, No CVAT Extremities-No Cyanosis, No Clubbing, No Edema Nuero-Cranial Nerves II-XII grossly intact, Motor WNL, DTRs WNL, Strength WNL, Non Focal Psych-Normal Mood Subjective Patient seen and evaluated room 307-1. Follow up lumbar decompression and fusion POD #3. Complains of increased lower extremity spasm last evening making it difficult for him to walk. Has been participating in therapies. Denies f/c/s, chest pain, sob, n/v/d, abdominal pain. Passing flatus but no BM. Appetite has been good. Blood sugars elevated this morning due to receiving additional dose of decadron last evening. Review of Systems Review of Systems: All systems reviewed & are unremarkable except as noted in HPI & below Physical Exam Physical Exam: Gen: WD/WN, M, lying in bed, NAD, A&O x3 HEENT: Normocephalic, atraumatic, conjunctivae moist, sclerae anicteric, mucous membranes moist. Lung: Clear to Auscultation bilaterally, no wheezes/rales/rhonchi Heart: Regular rate, regular rhythm, 1/6 LAVERNE best RUSB, no rubs, or gallops Abdomen: Soft, NT, ND +BS x 4 Extremities: No edema, lumbar dressing CDI MILTON drain intact Skin: Warm, no rash, negative turgor. Results & Data ([facility]) Vital Signs (Past 12 Hours) Vital Signs Temp Pulse Resp BP Pulse Ox 08/04/19 07:28 36.6 C 85 18 147/85 H 92
[2019-08-04] MEDS: DOCUSATE SODIUM/SENNA 50/8.6MG TAB PO SCH (20:27)
[2019-08-04] MEDS: DIGOXIN 0.25 MG TAB PO SCH (20:27)
[2019-08-05] MEDS: OXYCODONE HCL IR 5 MG TAB (IMMEDIATE RELEASE) PO PRN ×2 (05:15→08:41)
[2019-08-05] MEDS: OMEGA-3 (PURIFIED FISH OIL) 1 GM CAP PO SCH (08:41)
[2019-08-05] MEDS: CYANOCOBALAMIN 500 MCG TABLET (VITAMIN B-12) PO SCH (08:41)
[2019-08-05] MEDS: BACLOFEN 10 MG TAB PO SCH (08:41)
[2019-08-05] MEDS: LOSARTAN POTASSIUM 50 MG TAB PO SCH (08:42)
[2019-08-05] MEDS: CHOLECALCIFEROL 1,000 UNITS 25 MCG TAB PO SCH (08:42)
[2019-08-05] MEDS: ASPIRIN 81 MG ECTAB PO SCH (08:42)
[2019-08-05] MEDS: ASCORBIC ACID 500 MG TAB PO SCH (08:42)
[2019-08-05] MEDS: dilTIAZem HCL 240 MG CAPCR PO SCH (08:42)
[2019-08-05] MEDS: INSULIN GLARGINE SOLOSTAR 100 UNITS/ML 3 ML PEN SC SCH (08:44)
[2019-08-05] MEDS: INSULIN ASPART 100 UNITS/ML 3 ML PEN SC SCH ×2 (08:45→12:26)
--- NOTE | 2019-08-05 10:33 | XRay Report ---
XR lumbar spine 2-3V CLINICAL HISTORY: Postoperative evaluation. COMPARISON STUDY: Lumbar spine fluoroscopic images August 01, 2019. FINDINGS: These images demonstrate expected findings from an L4-L5 discectomy with interbody spacer p lacement. There is a posterior decompression. Bilateral pedicle screws at the L4 and L5 levels with i nterconnecting rods are noted. The hardware is intact. There are no unexpected radiopaque foreign bod ies. No lumbar spine fracture is noted. There is mild disc space narrowing with moderate osteophytosi s at L3-L4. IMPRESSION: Expected findings following L4-L5 discectomy, posterior decompression and bilateral pedicle screw fus ion. ACT 112: Negative or not required by law. Electronically signed by: Senthil Wright M.D. 08/05/2019 10:32 AM
[2019-08-05] MEDS ORDERED: LOSARTAN POTASSIUM 50 MG TAB PO ONE (10:49)
--- NOTE | 2019-08-05 10:55 | Hospitalist Progress Note ---
Date of Service August 05, 2019 Assessment & Plan (1) Neurogenic claudication due to lumbar spinal stenosis: S/P Lumbar decompression and fusion L4-[address] Ralph POD #4 EBL 250ml Wound/Pain management per ortho activity and therapy as directed by ortho encourage incentive spirometry monitor H&H, pre op 13.7 and 40.9, today 11.0 and 32.8,- acute blood loss anemia secondary to surg. procedure / expected, poss. also dilutional from IVF (2) Diabetes: A1c 6.6 Hold metformin and glipizide lantus/novolog per protocol BSG 127 okay to discharge home on oral hypoglycemics (3) Hypertension: Blood pressure has been labile on losartan and diltiazem currently 171/88 increase losartan to 150mg (4) History of tachycardia: History of atrial tachycardia aberrancy in 2009 without recurrence Continue digoxin and Cardizem (5) History of stroke: No deficits Continue ASA Not on statin secondary to allergy (6) LBBB (left bundle branch block): new LBBB found on pre op eval underwent nuclear stress test negative for ischemia (7) DVT prophylaxis: Per primary Disposition: per Primary Follow up: PCP Phoebe Mondragon, PAC at [facility] upon discharge Pt was seen and examined in collaboration with Dr. Pyle please see addendum Thank you for this consultation. We will follow the patient with you during their hospital stay. You can reach a member of the [facility] Hospitalist Team 19/01 via pager @ [phone]. Supervising Physician Co-Signing Physician Notes Physical Exam Gen-AAO x 3, NAD, Afebrile, Very Sore Back, Legs weak Head-NCAT, EOMI, PERRLA, Anicteric Sclera, No Posterior Pharyngeal Erythema Neck-Supple, No JVD, No Thyromegaly, No Masses, No LAD, No Bruits Lungs-Clear to Auscultation Bilaterally, No Rales, No Rhonchi, No Wheezing, No Crepitus Chest-No S4, +S1, +S2, No S3, No Murmurs, No Rubs, No Gallops, No Ectopy Abdomen-Soft, Bowel Sounds Present, Non Tender, Non Distended, No Hepatomegaly, No Splenomegaly, No Palpable Masses, No Rebound, No Rigidity, No Guarding Musculoskeletal-Full Range of Motion Bilaterally, No CVAT Extremities-No Cyanosis, No Clubbing, No Edema Nuero-Cranial Nerves II-XII grossly intact, Motor WNL, DTRs WNL, Strength WNL, Non Focal Psych-Normal Mood Subjective Patient seen and evaluated room 307-1. Follow up lumbar decompression and fusion POD #4. "I'm not doing good and I just want to get out of her." States he just returned from xray. Having increased difficulty walking and pain very severe from L buttock down to L knee. Pain is sharp and makes him unable to walk. is at bedside concerned about his regression. Denies f/c/s, chest pain, sob, MCDANIEL, n/v/d, abdominal pain. Appetite has good been. +BM yesterday. +flatus. Discussed his blood pressure medication losartan. States his BP has been high 160s even before surgery. [facility] was going to [facility] Losartan but never did. Review of Systems Review of Systems: All systems reviewed & are unremarkable except as noted in HPI & below Physical Exam Physical Exam: Gen: WD/WN, M, sitting up in wheel chair, NAD, A&O x3 HEENT: Normocephalic, atraumatic, conjunctivae moist, sclerae anicteric, mucous membranes moist. Lung: Clear to Auscultation bilaterally, no wheezes/rales/rhonchi Heart: Regular rate, regular rhythm, 1/6 [place] best RUSB, no rubs, or gallops Abdomen: Soft, NT, ND +BS x 4 Extremities: No edema, lumbar dressing CDI Skin: Warm, no rash, negative turgor. Results & Data ([facility]) Vital Signs (Past 12 Hours) Vital Signs Temp Pulse Resp BP Pulse Ox 08/05/19 07:18 36.4 C L 77 16 171/88 H 97 08/04/19 23:19 36.6 C 76 17 170/83 H 92 Laboratory Results Short CBC 08/01/19 08/01/19 08/01/19 Range/Units 06:10 10:02 12:06 POC Glucose 120 H 178 H 163 H (70-99) mg/dl 08/01/19 08/01/19 08/02/19 Range/Units 16:55 20:39 08:06 POC Glucose 200 H 215 H 136 H (70-99) mg/dl 02/10/1608/02/19 08/02/19 Range/Units 12:07 17:01 21:47 POC Glucose 181 H 153 H 157 H (70-99) mg/dl 08/03/19 08/03/19 08/03/19 Range/Units 08:21 12:26 17:10 POC Glucose 127 H 157 H 175 H (70-99) mg/dl 08/03/19 08/04/19 08/04/19 Range/Units 20:29 08:39 12:21 POC Glucose 255 H 181 H 151 H (70-99) mg/dl 08/04/19 08/04/19 08/05/19 Range/Units 17:06 20:52 08:26 POC Glucose 176 H 145 H 127 H (70-99) mg/dl Diagnostic Findings Lumbar Spine: IMPRESSION: Expected findings following L4-L5 discectomy, posterior decompression and bilateral pedicle screw fusion. Medications Administered Acetaminophen (Tylenol) 1,000 mg PO Q8H PRN PRN Reason: MILD Pain Rating 1,2,3 Stop: 08/31/19 11:03 Last Admin: 08/02/19 20:45 Dose: 1,000 mg Documented by: [id number] Ascorbic Acid (Vitamin C) 500 mg PO BID [facility] Stop: 08/31/19 20:59 Last Admin: 08/05/19 08:42 Dose: 500 mg Documented by: [id number] Admin: 08/04/19 20:27 Dose: 500 mg Documented by: [id number] Admin: 08/04/19 08:37 Dose: 500 mg Documented by: [id number] Admin: 08/03/19 20:36 Dose: 500 mg Documented by: [id number] Admin: 08/03/19 09:02 Dose: 500 mg Documented by: [id number] Admin: 08/02/19 20:45 Dose: 500 mg Documented by: [id number] Admin: 08/02/19 08:31 Dose: 500 mg Documented by: [id number] Admin: 08/01/19 20:35 Dose: 500 mg Documented by: [id number] Aspirin (Ecotrin Ectab) 81 mg PO QAM [facility] Stop: 09/01/19 08:59 Last Admin: 08/05/19 08:42 Dose: 81 mg Documented by: [id number] Admin: 08/04/19 08:37 Dose: 81 mg Documented by: [id number] Admin: 08/03/19 09:01 Dose: 81 mg Documented by: [id number] Admin: 08/02/19 08:20 Dose: 81 mg Documented by: [id number] Baclofen (Lioresal) 10 mg PO BID [facility] Stop: 08/31/19 20:59 Last Admin: 08/05/19 08:41 Dose: 10 mg Documented by: [id number] Admin: 08/04/19 20:26 Dose: 10 mg Documented by: [id number] Admin: 08/04/19 08:37 Dose: 10 mg Documented by: [id number] Admin: 08/03/19 20:37 Dose: 10 mg Documented by: [id number] Admin: 08/03/19 09:01 Dose: 10 mg Documented by: [id number] Admin: 08/02/19 20:45 Dose: 10 mg Documented by: [id number] Admin: 08/02/19 08:20 Dose: 10 mg Documented by: [id number] Admin: 08/01/19 20:34 Dose: 10 mg Documented by: [id number] Cyanocobalamin (Vitamin B-12) 500 mcg PO BID [facility] Stop: 08/31/19 20:59 Last Admin: 08/05/19 08:41 Dose: 500 mcg Documented by: [id number] Admin: 08/04/19 20:27 Dose: 500 mcg Documented by: [id number] Admin: 08/04/19 08:37 Dose: 500 mcg Documented by: [id number] Admin: 08/03/19 20:36 Dose: 500 mcg Documented by: [id number] Admin: 08/03/19 09:02 Dose: 500 mcg Documented by: [id number] Admin: 08/02/19 20:45 Dose: 500 mcg Documented by: [id number] Admin: 08/02/19 08:20 Dose: 500 mcg Documented by: [id number] Admin: 08/01/19 20:35 Dose: 500 mcg Documented by: [id number] Digoxin (Lanoxin) 0.25 mg PO QPM [facility] Stop: 08/31/19 20:59 Last Admin: 08/04/19 20:27 Dose: 0.25 mg Documented by: [id number] Admin: 08/03/19 20:37 Dose: 0.25 mg Documented by: [id number] Admin: 08/02/19 20:45 Dose: 0.25 mg Documented by: [id number] Admin: 08/01/19 20:34 Dose: 0.25 mg Documented by: [id number] Diltiazem HCl (Cardizem Cd) 240 mg PO BID [facility] Stop: 08/31/19 20:59 Last Admin: 08/05/19 08:42 Dose: 240 mg Documented by: [id number] Admin: 08/04/19 20:27 Dose: 240 mg Documented by: [id number] Admin: 08/04/19 08:37 Dose: 240 mg Documented by: [id number] Admin: 08/03/19 20:37 Dose: 240 mg Documented by: [id number] Admin: 08/03/19 09:01 Dose: 240 mg Documented by: [id number] Admin: 08/02/19 20:45 Dose: 240 mg Documented by: [id number] Admin: 08/02/19 08:19 Dose: 240 mg Documented by: [id number] Admin: 08/01/19 20:34 Dose: 240 mg Documented by: [id number] Fish Oil ([place]-3 (Purified Fish Oil)) 1 gm PO BID [facility] Stop: 08/31/19 20:59 Last Admin: 08/05/19 08:41 Dose: 1 gm Documented by: [id number] Admin: 08/04/19 20:27 Dose: 1 gm Documented by: [id number] Admin: 08/04/19 08:37 Dose: 1 gm Documented by: [id number] Admin: 08/03/19 20:36 Dose: 1 gm Documented by: [id number] Admin: 08/03/19 09:01 Dose: 1 gm Documented by: [id number] Admin: 08/02/19 20:45 Dose: 1 gm Documented by: [id number] Admin: 08/02/19 08:20 Dose: 1 gm Documented by: [id number] Admin: 08/01/19 20:35 Dose: 1 gm Documented by: [id number] Glipizide (Glucotrol) 2.5 mg PO DAILY@0800 [facility] Stop: 09/01/19 07:59 Last Admin: 08/02/19 08:34 Dose: Not Given Documented by: [id number] Hydromorphone HCl (Dilaudid) 1 mg IV Q3H PRN PRN Reason: severe pain (scale 7-10) Stop: 08/15/19 11:03 Last Admin: 08/02/19 16:26 Dose: 1 mg Documented by: [id number] Admin: 08/02/19 03:05 Dose: 1 mg Documented by: [id number] Insulin Aspart (Novolog Flexpen) 0 units SC ACHS [facility] Stop: 08/31/19 11:29 Last Admin: 08/05/19 08:45 Dose: 8 units Documented by: [id number] Cosigned by: [id number] Admin: 08/04/19 21:04 Dose: 1 units Documented by: [id number] Cosigned by: [id number] Admin: 08/04/19 18:37 Dose: 8 units Documented by: [id number] Cosigned by: [id number] Admin: 08/04/19 12:36 Dose: 11 units Documented by: [id number] Cosigned by: [id number] Admin: 08/04/19 08:41 Dose: 11 units Documented by: [id number] Cosigned by: [id number] Admin: 08/03/19 20:42 Dose: 6 units Documented by: [id number] Cosigned by: [id number] Admin: 08/03/19 18:00 Dose: 9 units Documented by: [id number] Cosigned by: [id number] Admin: 08/03/19 13:17 Dose: 12 units Documented by: [id number] Cosigned by: [id number] Admin: 08/03/19 09:03 Dose: 5 units Documented by: [id number] Cosigned by: [id number] Admin: 08/02/19 21:49 Dose: 1 units Documented by: [id number] Cosigned by: [id number] Admin: 08/02/19 18:06 Dose: 10 units Documented by: [id number] Cosigned by: [id number] Admin: 08/02/19 12:48 Dose: 14 units Documented by: [id number] Cosigned by: [id number] Admin: 08/02/19 08:24 Dose: 8 units Documented by: [id number] Cosigned by: [id number] Admin: 08/01/19 20:44 Dose: 4 units Documented by: [id number] Cosigned by: [id number] Admin: 08/01/19 18:09 Dose: 13 units Documented by: [id number] Cosigned by: [id number] Admin: 08/01/19 13:46 Dose: 9 units Documented by: [id number] Cosigned by: [id number] Insulin Glargine (Lantus Solostar Pen) 0 - 10 units SC BID [facility]; Protocol Stop: 08/31/19 11:29 Last Admin: 08/05/19 08:44 Dose: 5 units Documented by: [id number] Cosigned by: [id number] Admin: 08/04/19 21:04 Dose: 5 units Documented by: [id number] Cosigned by: [id number] Admin: 08/04/19 08:40 Dose: 10 units Documented by: [id number] Cosigned by: [id number] Admin: 08/03/19 20:40 Dose: 10 units Documented by: [id number] Cosigned by: [id number] Admin: 08/03/19 09:02 Dose: 5 units Documented by: [id number] Cosigned by: [id number] Admin: 08/02/19 21:48 Dose: 5 units Documented by: [id number] Cosigned by: [id number] Admin: 08/02/19 08:25 Dose: 5 units Documented by: [id number] Cosigned by: [id number] Admin: 08/01/19 20:43 Dose: 10 units Documented by: [id number] Cosigned by: [id number] Admin: 08/01/19 13:45 Dose: 5 units Documented by: [id number] Cosigned by: [id number] Menthol (Nice) 1 arnie BUCCAL PRN PRN PRN Reason: Cough Stop: 08/31/19 23:53 Last Admin: 08/01/19 23:56 Dose: 1 arnie Documented by: [id number] Oxycodone HCl (Roxicodone Immediate Rel) 5 - 10 mg PO Q4H PRN PRN Reason: Moderate-Severe Pain Stop: 08/15/19 11:03 Last Admin: 08/05/19 08:41 Dose: 10 mg Documented by: [id number] Admin: 08/05/19 05:15 Dose: 10 mg Documented by: [id number] Admin: 08/04/19 23:45 Dose: 10 mg Documented by: [id number] Admin: 08/04/19 19:51 Dose: 10 mg Documented by: [id number] Admin: 08/04/19 08:45 Dose: 10 mg Documented by: [id number] Admin: 08/04/19 00:36 Dose: 5 mg Documented by: [id number] Admin: 08/03/19 15:06 Dose: 10 mg Documented by: [id number] Admin: 08/03/19 10:16 Dose: 10 mg Documented by: [id number] Admin: 08/02/19 20:46 Dose: 10 mg Documented by: [id number] Admin: 08/01/19 23:46 Dose: 10 mg Documented by: [id number] Admin: 08/01/19 19:18 Dose: 10 mg Documented by: [id number] Senna/Docusate Sodium (Senokot S) 2 tab PO HS [facility] Stop: 08/31/19 20:59 Last Admin: 08/04/19 20:27 Dose: Not Given Documented by: [id number] Admin: 08/03/19 20:37 Dose: 2 tab Documented by: [id number] Admin: 08/02/19 20:45 Dose: 2 tab Documented by: [id number] Admin: 08/01/19 20:35 Dose: 2 tab Documented by: [id number] Tramadol HCl (Ultram) 50 - 100 mg PO Q4H PRN PRN Reason: Moderate-Severe Pain Stop: 08/31/19 11:03 Last Admin: 08/01/19 15:46 Dose: 100 mg Documented by: [id number] Vitamin D (Vitamin D3) 1,000 units PO BID [facility] Stop: 08/31/19 20:59 Last Admin: 08/05/19 08:42 Dose: 1,000 units Documented by: [id number] Admin: 08/04/19 20:27 Dose: 1,000 units Documented by: [id number] Admin: 08/04/19 08:37 Dose: 1,000 units Documented by: [id number] Admin: 08/03/19 20:36 Dose: 1,000 units Documented by: [id number] Admin: 08/03/19 09:01 Dose: 1,000 units Documented by: [id number] Admin: 08/02/19 20:45 Dose: 1,000 units Documented by: [id number] Admin: 08/02/19 08:21 Dose: 1,000 units Documented by: [id number] Admin: 08/01/19 20:34 Dose: 1,000 units Documented by: [id number] Discontinued Medications Acetaminophen (Tylenol) 1,000 mg PO PREOP [facility] Stop: 08/01/19 18:00 Last Admin: 08/01/19 06:49 Dose: 1,000 mg Documented by: [id number] Bacitracin (Bacitracin) Confirm Administered Dose 50,000 units .ROUTE .STK-MED ONE Stop: 08/01/19 07:09 Last Admin: 08/01/19 08:16 Dose: 50,000 units Documented by: [id number] Bupivacaine HCl/Epinephrine Bitart (Bupivacaine 0.25%-Epi [id number]) Confirm Administered Dose 30 ml .ROUTE .STK-MED ONE Stop: 08/01/19 07:09 Last Admin: 08/01/19 08:16 Dose: 20 ml Documented by: [id number] Celecoxib (Celebrex) 200 mg PO PREOP [facility] Stop: 08/01/19 18:00 Last Admin: 08/01/19 06:50 Dose: 200 mg Documented by: [id number] Gabapentin (Neurontin) 300 mg PO PREOP [facility] Stop: 08/01/19 18:00 Last Admin: 08/01/19 06:49 Dose: 300 mg Documented by: [id number] Lactated Ringer's (Lr) 1,000 mls @ 15 mls/hr IV .Q24H [facility] Stop: 08/02/19 05:59 Last Infusion: 08/01/19 07:43 Dose: 0 mls/hr Documented by: [id number] Admin: 08/01/19 06:49 Dose: 15 mls/hr Documented by: [id number] Cefazolin Sodium (Ancef 2000mg) 2,000 mg in 15 mls @ 3.75 mls/min IV PREOP [facility]; Protocol Stop: 08/01/19 18:00 Last Admin: 08/01/19 07:43 Dose: 3.75 mls/min Documented by: [id number] Sodium Chloride (Nss 1000ml) 1,000 mls @ 150 mls/hr IV .Q6H40M [facility] Stop: 08/31/19 11:03 Last Admin: 08/02/19 03:31 Dose: Not Given Documented by: [id number] Infusion: 08/02/19 02:53 Dose: 0 mls/hr Documented by: [id number] Admin: 08/01/19 20:12 Dose: 150 mls/hr Documented by: [id number] Infusion: 08/01/19 18:28 Dose: 150 mls/hr Documented by: [id number] Infusion: 08/01/19 14:20 Dose: 150 mls/hr Documented by: [id number] Admin: 08/01/19 11:48 Dose: 150 mls/hr Documented by: [id number] Cefazolin Sodium (Ancef 2000mg) 2,000 mg in 15 mls @ 3.75 mls/min IV Q8H [facility]; Protocol Stop: 08/01/19 19:07 Last Admin: 08/02/19 21:33 Dose: Not Given Documented by: [id number] Cefazolin Sodium (Ancef 2000mg) 2,000 mg in 15 mls @ 3.75 mls/min IV Q8H [facility]; Protocol Stop: 08/02/19 00:03 Last Admin: 08/01/19 23:43 Dose: 3.75 mls/min Documented by: [id number] Admin: 08/01/19 15:51 Dose: 3.75 mls/min Documented by: [id number] Dexamethasone Sodium Phosphate (8 mg/ Syringe) 2 mls @ 1 mls/min IV ONE ONE Stop: 08/03/19 11:16 Last Admin: 08/03/19 12:45 Dose: 1 mls/min Documented by: [id number] Ketorolac Tromethamine (Toradol) 15 mg IV Q6H [facility] Stop: 08/02/19 06:01 Last Admin: 08/02/19 05:18 Dose: 15 mg Documented by: [id number] Admin: 08/01/19 23:43 Dose: 15 mg Documented by: [id number] Admin: 08/01/19 18:04 Dose: 15 mg Documented by: [id number] Admin: 08/01/19 11:48 Dose: 15 mg Documented by: [id number] Losartan Potassium (Cozaar) 100 mg PO QAM [facility] Stop: 09/01/19 08:59 Last Admin: 08/05/19 08:42 Dose: 100 mg Documented by: [id number] Admin: 08/04/19 08:37 Dose: 100 mg Documented by: [id number] Admin: 08/03/19 09:01 Dose: 100 mg Documented by: [id number] Admin: 08/02/19 08:19 Dose: 100 mg Documented by: [id number] Miscellaneous (Floseal Hemostatic Matrix 10ml) 25 ml TOP ONCE ONE Stop: 08/01/19 09:37 Last Admin: 08/02/19 21:33 Dose: Not Given Documented by: [id number] Polyethylene Glycol (Miralax Powder Packet) 17 gm PO Q6 [facility] Stop: 09/01/19 05:59 Last Admin: 08/04/19 18:39 Dose: Not Given Documented by: [id number] Admin: 08/04/19 12:35 Dose: Not Given Documented by: [id number] Admin: 08/04/19 05:17 Dose: 17 gm Documented by: [id number] Admin: 08/04/19 00:37 Dose: Not Given Documented by: [id number] Admin: 08/03/19 17:59 Dose: 17 gm Documented by: [id number] Admin: 08/03/19 12:45 Dose: Not Given Documented by: [id number] Admin: 08/03/19 05:23 Dose: Not Given Documented by: [id number] Admin: 08/03/19 00:21 Dose: Not Given Documented by: [id number] Admin: 08/02/19 18:05 Dose: Not Given Documented by: [id number] Admin: 08/02/19 12:49 Dose: Not Given Documented by: [id number] Admin: 08/02/19 05:58 Dose: Not Given Documented by: [id number]
[2019-08-05] MEDS: TRAMADOL HCL 50 MG TABLET PO PRN (11:05)
[2019-08-05] MEDS ORDERED: hydroCHLOROthiazide 25 MG TAB PO SCH (12:00)
--- NOTE | 2019-08-05 13:40 | Orthopedic Progress Note ---
Date of Service August 05, 2019 Assessment & Plan (1) Neurogenic claudication due to lumbar spinal stenosis: At this time we will allow him to discharge today to rehab. X-rays demonstrate instrumentation be in place in proper alignment. I suspect he has some postop sciatica which should improve with time. Present on Admission?: Yes Subjective Back pain controlled left leg symptoms still present. Physical Exam Physical Exam: On exam is in the chair at the bedside. He has no tension signs testing. Is excellent strength testing. Incision is clean dry intact. Results & Data ([facility]) Vital Signs (Past 12 Hours) Vital Signs Temp Pulse Pulse Pulse Pulse Resp BP 08/05/19 12:41 36.4 C L 80 78 77 60 16 08/05/19 07:18 36.4 C L 77 16 171/88 H BP Pulse Ox 08/05/19 12:41 147/85 H 97 08/05/19 07:18 97
[2019-08-06] MEDS ORDERED: LOSARTAN POTASSIUM 50 MG TAB PO SCH ×2 (09:00)
== END 2019-08-05 14:04 | disposition home or self-care (01) | DRG 454 ==
LOC: ASU 05:32 → 3E 10:12